=== PATIENT | female | born 1965 | race Caucasian/White ===

== ENCOUNTER 2025-07-06 13:35 | Outpatient (CLI) | payer OTHER, SELFPAY ==
--- OUTSIDE RECORDS SUMMARY | 2019-09-02 05:02 | XMS_ITS | Continuity of Care Document ---
Author Organization [facility] Address [address] [place] [address] Phone Care Team Providers Care Accounts Receivable Analyst Name Role Phone Calvin Villa MD Unavailable Unavailable Allergies, Adverse Reactions, Alerts Substance Reaction Status Criticality PENICILLIN Active No Information Medications Medication Instructions Dosage Effective Dates (start - stop) Status Comments Nexium 40 mg capsule,delayed release take 1 capsule by oral route every day 40 MG - Active Advance Directives Directive Yes / No Effective Date File Name No Information Encounters Encounter Description Practice Location Reason(s) For Visit Diagnoses Date Provider Providers Copied on Encounter [facility], [address], [place], [place], [id number] , [place] tel: [phone] [facility] No Information 9 Allen Simpson. [address] [place] [address], [id number] , . tel: [phone] [facility], [address], [place], [place], [id number] , tel: [phone] [facility] Second degree hemorrhoids 8 Allen Simpson. [address] [place] [address], [id number] , [place]. tel: [phone] Referring Provider: Calvin Villa, [address] [place] [address], [id number] . tel:[phone] [facility], [address], [place], [place], [id number] , tel: [phone] [facility] First degree hemorrhoidsHemorrh age of anus and rectum 8 Allen Simpson. [address] [facility] [facility], [address], [place], [place], [id number] , [place]. tel: [phone] Referring Provider: Edin Akhtar, [address] [employer] [facility], [place], [address]. tel:[phone] [facility], [address], [place], [place], [id number] , [place] tel: [phone] [facility] Rectal bleedingConstipati on, unspecified constipation typeHistory of colonic polyps 8 Isacc Mariano. [address], [address], [place], [address], [place]. tel: [phone] Referring Provider: Edin Akhtar, [address] [employer] [facility], [place], [address]. tel:[phone] Family History Family Member Type Diagnosis Age At Onset No Information Payers Payer name Insurance type Covered alliance party ID Naila jackman(s) [facility] [id number] Social History Type Description Quantity Date Captured Comments Alcohol Use Details Unknown Caffeine Use Details Unknown Tobacco Use Status Smoking Status No Information Sex Female Chief Complaint And Reason For Visit No Information Reason For Referral Reason For Referral No Information History Of Present Illness Encounter Date Complaint History Of Prese nt Illness No Information Functional Status Date Functional Assessmen t No Information Instructions Date Instruction Additional Infor mation No Information Assessments Type Assessment Date No Information Patient Care Teams Name Effective Dates (start - stop) Status Members No Information
--- NOTE | ~2025-07-06 | CT_ITS ---
EXAMINATION: CT knee LT wo con COMPARISON: None HISTORY: S83.282D - Other tear of lateral meniscus, current injury... TECHNIQUE: Axial images were obtained without IV contrast. Sagittal, coronal reconstruction images were obtained from the axial views. CT scan performed using dose optimization techniques including the following automated exposure control; adjustment of mA and/or kV; use of iterative reconstruction technique. Automatic exposure control was used to reduce radiation dose. Permanent radiation dose record is archived to PACS. FINDINGS: Small joint effusion. There are calcified loose bodies. No subcutaneous fluid collection or intramuscular hemorrhage identified (Is no thickening of the medial joint space, the hardware is intact with no lucency around the hardware. Moderate narrowing noted of the patellofemoral joint space with minimal narrowing of the lateral joint spaces, there is no fracture or dislocation. Scattered punctate bone islands are noted. IMPRESSION: Postsurgical and degenerative changes detailed above Reviewed, dictated and finalized at location A.
--- OUTSIDE RECORDS SUMMARY | 2025-07-06 15:08 | XMS_ITS | Clinical Summary ---
Author Organization [facility] Address [address] [place] [address] Care Team Providers Care Bird Tender Name Role Phone Unavailable Primary Care Provider Unavailabl e Source Comments [facility],non-owned Affiliates and Associated Physician Practices is amultiple site organization consisting of ambulatory clinics and hospital sitesin [place], [place], [place] and [place]. This disclosure is being madepursuant to the Care Everywhere program and may not contain all information available regarding this patient. Last updated 18.[facility] Social History Tobacco Use Types Packs/Day Years Used Date Smoking Tobacco: Never Assessed Comments Unknown Sex and Gender Information Value Date Recorded Sex Assigned at Not on file Legal Sex Female 11:59 AM CDT Gender Identity Not on file Sexual Orientation Not on file Plan of Treatment Health Maintenance Due Date Last Done Comments COLOGUARD (AGES 45-75) - COL ON CA SCREENING 1963 COLON MONITORING 1963 COLONOSCOPY - COLON CA SCREENING 1963 CT COLONOGRAPHY - COLON CA SCREENING 1963 Colorectal Cancer Screening 1963 FIT - COLON CA SCREENING 1963 FLEX SIG - COLON CA SCREENING 1963 LIPID TESTING 1963 MAMMOGRAM 1963 HIV SCREENING 1978 HEPATITIS C SCREENING 08/09/1981 DTAP/TDAP/TD VACCINES (1 - Tdap) 1982 PAP SMEAR 1984 PNEUMOCOCCAL VACCINE 50+ (1 of 1 - PCV) 2013 ZOSTER VACCINE (1 of 2) 2013 COVID-19 VACCINE ( - 2023-2 5 season) 2024 DEPRESSION SCREENING 10/28/2024 INFLUENZA VACCINE (#1) 2025 Respiratory Syncytial Virus (RSV) Vaccine Pt: or over 60 yrs (1 - 1-dose 75+ series) 2038 HEPATITIS B VACCINE Aged Out No longe r eligible based on patient's age to complete this topic HIB VACCINE Aged Out No longer eligi ble based on patient's age to complete this topic HPV VACCINE Aged Out No longer eligi ble based on patient's age to complete this topic MENINGOCOCCAL (Group B) VACC INE SHARED DECISION-MAKING Aged Out No longer eligibl e based on patient's age to complete this topic MENINGOCOCCAL GROUPS A/C/Y/W VACCINE Aged Out No longer eligible b ased on patient's age to complete this topic Insurance AETNA AETNA
--- OUTSIDE RECORDS SUMMARY | 2025-07-06 15:08 | XMS_ITS | Clinical Summary ---
Author Organization [facility] Building A Address [address] [place] [address] Care Team Providers Care Guest Room Attendant Name Role Phone Boo Deleon Primary Care Provider Dorian Rogers MD Unavailable [phone] Mikey Maynard MD Unavailable [phone] Allergies Active Allergy Reactions Criticality Noted Date Comments Regadenoson Nausea & Vomiting Low 09/08/2024 Medications BD Luer-João Syringe 3 mL 25 x 5/8 syringe USED FOR MONTHLY B12 SHOTS 100 each 3 2 Active aspirin 81 mg enteric coated tablet Take 1 tablet (81 mg total) by mouth daily Active ciclopirox (PENLAC) 8 % solution APPLY TO AFFECTED NAILS NIGHTLY. REMOVE ON THE 7TH NIGHT AND START AGAIN. 4 Active albuterol HFA (ProAir HFA) 90 mcg/actuation inhaler Inhale 2 puffs every 4 (four) hours as needed for wheezing or shortness of breath 3 each 3 4 07/14/[address] (NexIUM) 40 mg capsule TAKE 1 CAPSULE BY MOUTH EVERY DAY BEFORE BREAKFAST 90 capsule 3 4 Active fluticasone propionate (FLONASE) 50 mcg/actuation nasal spray Administer 2 sprays into each nostril daily 1 each 11 5 Active atorvastatin (LIPITOR) 10 mg tablet TAKE 1 TABLET BY MOUTH EVERY DAY 90 tablet 3 Active budesonide-form oteroL (SYMBICORT) 80-4.5 mcg/actuation inhaler Inhale 2 puffs 2 (two) times a day Rinse mouth with water after use. Do not swallow. 1 each Active cyanocobalamin (Vitamin B-12) 1,000 mcg/mL injection INJECT 2MLS ONCE A MONTH 6 mL Active methocarbamoL (ROBAXIN) 750 mg tablet Take 1 tablet (750 mg total) by mouth 3 (three) times a day 15 tablet Active Additional Information Patient not taking.Reported on 06/09/2025 ibuprofen (ADVIL,MOTRIN) 600 mg tablet Take 1 tablet (600 mg total) by mouth every 6 (six) hours as needed for pain for up to 60 doses 60 tablet Active Additional Information Patient not taking.Reported on 06/09/2025 famotidine (PEPCID) 40 mg tabletIndicatio ns:Laryngophary ngeal reflux (LPR) Take 1 tablet (40 mg total) by mouth nightly 90 tablet 3 5 05/22/20 26 Active Active Problems Problem Noted Date Diagnosed Date Subcutaneous emphysema due to trauma 05/27/2025 Assessment & Plan (05/27/2025 2:01 PM CDT): Personal interpretation of CT Neck: extensive subcutaneous emphysema of the right side of parotid area, neck and medistinum Consider repeat CT neck if continued foreign body sensation Right Decreased hearing 05/07/2025 Assessment & Plan (05/07/2025 6:21 AM CDT): Gross auditory testing shows decreased hearing in both sides, and markedly decreased on right side. Plan: Pt is seen by ENT, Dr. Enamorado, and requests to follow-up with her. Patient given strict precautions / symptoms to seek more urgent care including ear pain, ear discharge, or blood coming from out of the ear. Penetrating trauma 05/06/2025 Assessment & Plan (05/06/2025 2:47 PM CDT): 05/05 work injury drill strike piercing chin and chest. Transfer from osh, someone on ladder holding a drill, drill fell on pt and hit her chest, # R PTX #pneumomediastinum #pulmonary contusion #trace pleural effusion Discharge planning issues 05/06/2025 Assessment & Plan (05/06/2025 2:35 PM CDT): 05/05 admit awaiting inpatient bed. Acute pain 05/06/2025 Assessment & Plan (05/06/2025 2:36 PM CDT): Multimodal pain regimen APAP 1000 mg Ganesh Q 6hr Hydromorphone 0.5 mg prn Q2 hr Lidocaine patch Oxycodone 5 mg PRN Bowel regimen Senna and Miralax Pneumothorax 05/06/2025 Assessment & Plan (05/06/2025 2:46 PM CDT): Presented from [facility] with chest tube, poorly sutures and migrated with side port outside lung in SQ tissue, removed in ed -Serial CXR Q4 hour post pull 2 view - pulmonary hygiene - IS q1h - continuous pulse ox -telemetry 24-48 hours Oxygen supplementation maintain O2 sat greater than 92% HLD (hyperlipidemia) 05/06/2025 Assessment & Plan (05/06/2025 2:43 PM CDT): Chronic home med Atorvastatin 10 mg daily and ASA daily Puncture wound of neck 05/06/2025 Assessment & Plan (05/06/2025 2:44 PM CDT): #anterior neck puncture wound - local wound care PRN (4x4s, medipore) Puncture wound of chest 05/06/2025 Assessment & Plan (05/06/2025 2:49 PM CDT): Empiric antibiotic Ancef 05/05 Gentamicin 05/05 Updated Tetanus 05/05 Blunt trauma to chest, initial encounter 025 Laryngeal spasm 03/30/2025 Assessment & Plan (05/27/2025 1:52 PM CDT): Continue Nexium in the morning 30 minutes before any other food or fluid or medication Then start Pepcid 40 mg at bedtime Call if no improvement in the next 6-8 weeks, then if improvement noted, decrease Pepcid to 20 mg and then stop Assessment & Plan (03/30/2025 10:33 AM CDT): Continue Nexium Chronic sinusitis 03/29/2025 Assessment & Plan (03/29/2025 2:51 PM CDT): Continue Nexium 64 ounces of caffeine free and soda free fluid daily, more if sweating Nasal saline or Sinus Rinse followed Continue Flonase 2 sprays into each nostril while looking down over the sink, do not sniff in or blow nose after use for at least 30 minutes daily Call if no improvement in 6 weeks for trial of Astelin Pure hypercholesterolemia 10/25/2022 Assessment & Plan (03/10/2025 11:01 AM CDT): Counseled on heart healthy diet exercise Assessment & Plan (09/08/2024 12:31 PM CORROSION CONTROL ENGINEER): Counseled on heart healthy diet exercise Assessment & Plan (07/28/2024 3:17 PM CDT): Counseled on heart healthy diet exercise 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 Synovial cyst or some nerve compression Laryngopharyngeal reflux (LPR) 09/11/2021 Assessment & Plan (05/27/2025 1:52 PM CDT): Continue Nexium in the morning 30 minutes before any other food or fluid or medication Then start Pepcid 40 mg at bedtime Call if no improvement in the next 6-8 weeks, then if improvement noted, decrease Pepcid to 20 mg and then stop Assessment & Plan (05/06/2025 2:39 PM CDT): Chronic home med Esomeprazole 40 mg daily Assessment & Plan (09/11/2021 4:18 PM CORROSION CONTROL ENGINEER): Restart meds and try to change l pita to reduce meds Vitamin deficiency 08/29/2020 Assessment & Plan (05/06/2025 2:44 PM CDT): Chronic home med Vitam B-12 injection resume at discharge, initiate Vitamin D supplement Assessment & Plan (09/11/2021 4:09 PM CORROSION CONTROL ENGINEER): Vit d up and nl and stay on d at 39 and stay on Assessment & Plan (08/29/2020 3:53 PM CORROSION CONTROL ENGINEER): Taking vit d 1000 and stay on and check on retutrn Zinc deficiency 08/29/2020 Assessment & Plan (08/29/2020 3:53 PM CORROSION CONTROL ENGINEER): Levels mildly low and start zn daily supplement and check on return Abnormal LFTs 08/29/2020 Assessment & Plan (09/11/2021 4:09 PM CORROSION CONTROL ENGINEER): Alt back to nl Assessment & Plan (08/29/2020 3:59 PM CORROSION CONTROL ENGINEER): lft's dropped From 1 60 and down to 40 and nl now and check on reutr Multinodular goiter 12/03/2019 Assessment & Plan (08/29/2020 3:55 PM CORROSION CONTROL ENGINEER): tsh .81 nl and no jacob Assessment & Plan (12/03/2019 3:50 PM CORROSION CONTROL ENGINEER): Multi nodular goiter and discussed what and not interested to do repeat Or referral Carpal tunnel syndrome of right wrist 10/22/2019 Assessment & Plan (10/22/2019 2:41 PM CORROSION CONTROL ENGINEER): Classic when awaken meredith and corey trial cock up spinlt and report results on eeturn Hand arthritis 10/22/2019 Assessment & Plan (03/07/2020 4:20 PM CDT): Stable w/o arthralgia. Cnt. With daily modifications to prevent arthralgia flare up. Does not clinically appear to have any relation with acute dystrophy concerns Assessment & Plan (10/22/2019 2:44 PM CORROSION CONTROL ENGINEER): Look for inflamatory errosion check 0both hands Microscopic hematuria 08/28/2019 Assessment & Plan (08/29/2020 3:55 PM CORROSION CONTROL ENGINEER): Trace hem + and neg blood cells/. 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 And got colon and now wiling to do saida. On b12 and urged to stay oh And labs in a yr urged to get shingles hsot series and booster to covid Assessment & Plan (08/29/2020 4:08 PM CORROSION CONTROL ENGINEER): trancient abn lft resolved and no answer as to why the b12 nl with 2000 a month vit d Taking and ch4ck on reutnr sdropped th as to 81. zn nik start and bring in dose with return and check Assessment & Plan (12/03/2019 3:56 PM CORROSION CONTROL ENGINEER): P.e. on return ini early fall and labs the week defofre Assessment & Plan (08/28/2019 4:29 PM CDT): Well exam with copd and wants to quit. Screen, sprio with mild copd oobstructive changes trial augmentin for r ost lat neck nodule and base of hair line. Re eval in 6wks. Not into flu lsots. Assessment & Plan (07/25/2018 10:13 AM CDT): oirdered saida, had colon. Quit smoking and shingles shots. reymundonus discussed alont with flu and p shots. Assessment & Plan (04/18/2017 3:59 PM CDT): Healthy fmale with no c.o cont b12 with inj due and level 395 so monthly inj working for her. Fall flu shots keep wt up. Repeat labs and exam in a yr Chronic obstructive pulmonary disease 03/13/2014 Overview (01/31/2017): CHR AIRWAY OBSTRUCT NEC Assessment & Plan (05/06/2025 2:39 PM CDT): Chronic Home meds :Symbicort, Flonase, Albuterol Assessment & Plan (09/11/2021 4:11 PM CORROSION CONTROL ENGINEER): Prn albuterol and pred pulse if need Assessment & Plan (08/29/2020 3:56 PM CORROSION CONTROL ENGINEER): Copd and active smomker Assessment & Plan (12/03/2019 3:49 PM CORROSION CONTROL ENGINEER): Working to back off and not smoking at work that can do with less Assessment & Plan (08/28/2019 4:34 PM CDT): sprio with fvc 109 and fev1 78 withfev1% 58 Mild obstirctinve defect quiting smoiking will help mild copd Assessment & Plan (07/25/2018 10:13 AM CDT): Smoking dirdven and aqaware of need to qquit Assessment & Plan (04/18/2017 4:01 PM CDT): Daily coughand secretion with breathing test at 66 % Of the first sec compared to the end. This is low and suppport an obstruction and with yuou smoking. B12 deficiency 03/13/2014 Overview (01/31/2017): B12 deficiency Assessment & Plan (09/11/2021 4:11 PM CORROSION CONTROL ENGINEER): Stay no b12 and check onreutrn Assessment & Plan (08/29/2020 3:52 PM CORROSION CONTROL ENGINEER): b12 2000 a lm onth and runsin mid 500s and stay athere Assessment & Plan (03/07/2020 4:19 PM CDT): Last level WNL receiving monthly injections for Vit b12 hypovitaminemia. Cnt. Monthly injections with repeat vitamin B12 level for reassurance today as requested Assessment & Plan (12/03/2019 3:48 PM CORROSION CONTROL ENGINEER): Check with nov labs Assessment & Plan (07/25/2018 10:02 AM CDT): At 244 and taking monthly. Believes probably 6 wks from last. Will go to 2 shots a Month and can take monthly or q 2 wks Assessment & Plan (04/18/2017 3:59 PM CDT): Level just before inj due at 395 so monthly inj working and ocnt Tobacco dependence syndrome 03/13/2014 Overview (02/01/2017): TOBACCO USE DISORDER Assessment & Plan (03/10/2025 11:01 AM CDT): The patient was advised to quit smoking; the risks of continued tobacco use discussed. Assessment & Plan (12/07/2024 8:24 AM CORROSION CONTROL ENGINEER): The patient was advised to quit smoking; the risks of continued tobacco use discussed. Assessment & Plan (09/08/2024 12:31 PM CORROSION CONTROL ENGINEER): The patient was advised to quit smoking; the risks of continued tobacco use discussed. Assessment & Plan (07/28/2024 10:39 AM CDT): The patient was advised to quit smoking; the risks of continued tobacco use discussed. Assessment & Plan (01/27/2024 3:40 PM CDT): The patient was advised to quit smoking; the risks of continued tobacco use discussed. Assessment & Plan (09/24/2023 7:12 AM CORROSION CONTROL ENGINEER): The patient was advised to quit smoking; the risks of continued tobacco use discussed. Assessment & Plan (04/17/2023 12:31 PM CDT): She was advised to quit smoking; the risks of continued tobacco use discussed. Assessment & Plan (10/25/2022 12:44 PM CORROSION CONTROL ENGINEER): The patient was advised to quit smoking; the risks of continued tobacco use discussed. Assessment & Plan (09/11/2021 4:11 PM CORROSION CONTROL ENGINEER): talkabout tobacco and struggles to quit Assessment & Plan (05/30/2021 12:54 PM CDT): She was advised to quit smoking; the risks of continued tobacco use discussed. Assessment & Plan (03/22/2020 8:19 AM CDT): She was advised to quit smoking; the risks of continued tobacco use discussed. Assessment & Plan (08/28/2019 4:18 PM CDT): Long talk and agress to try chantix nobonarinder martinez Assessment & Plan (08/27/2017 10:47 AM CDT): Of course I recommended tobacco cessation. She is disinterested and declines any assistance in this regard. Assessment & Plan (04/18/2017 4:01 PM CDT): quitingf still the most important thing to do for health Resolved Problems Problem Noted Date Diagnosed Date Resolved Date Chest pain 10/09/2024 12/07/2024 Acute recurrent frontal sinusitis 12/30/2022 04/17/2023 Assessment & Plan (12/30/2022 9:00 PM CORROSION CONTROL ENGINEER): 1. Sudafed 2. Augmentin 3. Nasal saline rinses as needed for congestion. 4. Follow-up in 5-7 days - if symptoms worsen or persist Smokes 1 pack of cigarettes per day 05/22/2022 04/17/2023 Assessment & Plan (05/22/2022 4:25 PM CDT): Smoked since teenager was some more and now can't smoke at work so ends up smoking less. Offered low dose ct screen for cancer Discoloration of nailbeds 03/07/2020 Assessment & Plan (03/07/2020 4:22 PM CDT): Bilateral thumb nail dystrophies which could likely be D/T prior trauma VS a deficiency anemia, chronic hypoxia/ tobacco use, vitamin deficiencies or onychomycosis. Checking CBC, vitamin-A, vitamin-D, vitamin B6, vitamin B 9, vitamin B12, CBC, zinc for further evaluation. Recent CMP indicated normal liver functions and glucose testing. Essentially asymptomatic aside from visual concerns-w/o any desire to look further into autoimmune conditions such as psoriasis (as this was offered to Pt, but she declined). Further follow-up pending results of labs. Neck nodule 10/22/2019 12/03/2019 Assessment & Plan (10/22/2019 2:40 PM CORROSION CONTROL ENGINEER): r lat neck and get ct to eval and re eval in 4-6 wks pending results Vertigo 05/25/2019 01/27/2024 Assessment & Plan (05/25/2019 10:18 AM CDT): Recurrent spellsin past with 2-3 prior pt has helped in past and asks for pt. Uses salt heavily And asked to liimit Salt Some. Meclizine not helpful in past. BMI 23.0-23.9, adult 07/25/2018 024 Assessment & Plan (05/22/2022 4:30 PM CDT): Wt stable Assessment & Plan (09/11/2021 4:10 PM CORROSION CONTROL ENGINEER): Work to keep sta stable Assessment & Plan (08/29/2020 4:10 PM CORROSION CONTROL ENGINEER): Keep wt stable Assessment & Plan (08/28/2019 4:18 PM CDT): Wt still great. Assessment & Plan (07/25/2018 10:14 AM CDT): Work to keep wt here as not wanting ot lose Acute URI 08/27/2017 07/25/2018 Assessment & Plan (02/03/2018 1:40 PM CDT): Recommended Augmentin 1 tablet twice daily for 10 day course with use of probiotics [id number] for any GI upset, iroq-mql-[id number] Flonase, use of a humidifier or vaporization use at night certainly close follow-up outpatient regarding condition. I did recommend Mucinex [id number] for any of the chest congestion and to assist with productivity and cough. Close follow-up outpatient if there is worsening or little improvement symptoms Assessment & Plan (08/27/2017 10:47 AM CDT): Humidification, fluids, and rest were recommended. Patient was instructed to take antibiotic as directed. Patient was encouraged to take antibiotic with food. I have also recommended daily probiotic, yogurt or capsule, while on the antibiotic. Encounters Date Type Department Care Team Description 07/06/2025 [facility]phone [facility] [address] [facility] 3rd Floor [address] [place] [address] Lu Austin letter for work stating she can not go back to work 06/16/2025 9:30 AM CDT Office Visit [facility] [address] [facility] [address] [place] [address] Puncture wound of chest, left, subsequent encounter (Primary Dx) 06/15/2025 Telephone [facility] [address] [place] [address] [address] [place] [address] Tereza Garcia MA work status 06/09/2025 10:15 AM CDT Office Visit [facility] [address] [place] [address] [address] [place] [address] Traumatic pneumothorax, subsequent encounter (Primary Dx) 05/27/2025 1:45 PM CDT Office Visit [facility] - [facility] [address] [place] [phone] Nilam Enamorado DO Laryngopharyngeal reflux (LPR) (Primary Dx); Laryngeal spasm; Traumatic subcutaneous emphysema, initial encounter 05/19/2025 10:45 AM CDT Office Visit [facility] [address] [place] [address] [address] [place] [address] Traumatic pneumothorax, subsequent encounter (Primary Dx) 05/19/2025 10:00 AM CDT - 05/19/2025 11:59 PM CDT Hospital Encounter [facility] [address] [place] [address] Traumatic pneumothorax, subsequent encounter Discharge Disposition: Discharge to home or self care 05/11/2025 Telephone [facility] Medicine Surgery [address] [place] [address] 12th [place] [address] [place] [address] Gail Camacho 05/11/2025 Telephone [facility] [place] [address] [place] [phone] Boo Deleon PA Referral Request 05/05/2025 8:47 PM CDT - 05/07/2025 3:36 PM CDT Hospital Encounter [facility] [address] [facility] [place] [address] An Virk MD Zanaboni, MD Scott Albarran, MD Wilton Alvarez, Deon Cardozo MD Blunt trauma to chest, initial encounter (Primary Dx); Traumatic pneumothorax, initial encounter; Chest tube in place Discharge Disposition: Discharge to home or self care 05/05/2025 8:05 PM CDT - 05/05/2025 11:59 PM CDT Hospital Encounter [facility], Room R Discharge Disposition: Discharge to home or self care 05/05/2025 4:06 PM CDT - 05/05/2025 8:23 PM CDT Emergency [facility] Emergency Department [address] [place] [address] Conner Gordillo MD Puncture wound (Primary Dx) Discharge Disposition: Discharge to a short term hospital for IP 04/29/2025 Results Follow-Up [facility] [place] [address] [place] [id number] Boo Deleon PA Dexa Axial Skeleton Bone Density 1 Or 2 Site 04/28/2025 2:49 PM CDT - 04/28/2025 11:59 PM CDT Hospital Encounter [facility] [address] [place] [address] Age related osteoporosis, unspecified pathological fracture presence Discharge Disposition: Discharge to home or self care from Last 3 Months Immunizations Immunization Administration Dates Next Due Influenza, Unspecified 12/07/2024(Deferr ed: Patient Refused),09/08/2024(Deferred: Patient Refused),07/28/2024(Deferred: Patient Refused),07/28/2024(Deferred: Patient Refused),09/24/2023(Deferred: Patient Refused),07/28/2023(Deferred: Patient Refused),05/30/2021(Deferred: Patient Refused),01/16/2021(Deferred: Patient Refused),12/28/2020(Deferred: Patient Refused),08/29/2020(Deferred: Patient Refused),08/02/2019(Deferred: Patient Refused),07/28/2019(Deferred: Patient Refused),06/05/2019(Deferred: Not available from electronic gluing machine operator),08/02/2018(Deferred: Patient Refused),07/28/2018(Deferred: Patient Refused),07/28/2018(Deferred: Patient Refused) Moderna SARS-CoV-2 Monovalen t Vaccination (12+ YRS) 02/17/2021,01/20/2021 Tdap 05/05/2025(Deferred: Other - received at OSH),05/05/2025 Surgical History Surgery Date Site/Laterality Comments APPENDECTOMY 10/28/1978 - 10/27/1979 Appendectomy THROAT SURGERY 10/28/2005 - 10/27/2006 vocal cord nodules -from gerd: vocal chord stripping-gerd related KNEE SURGERY 10/28/2013 - 10/27/2014 meniscal tear: L knee surgery HYSTERECTOMY OOPHORECTOMY 2000 or Left TOTAL KNEE ARTHROPLASTY b/l Medical History Medical History Date Comments Smoking Sleep apnea Motion sickness Family history of patent foramen ovale small per ANT 2019 Lung disease COPD (chronic obstructive pulmonary disease) Cough GERD (gastroesophageal reflux disease) Chronic pain disorder Family History Medical History Relation Name Comments Blood Clot Father Heart failure Father Hypertension Father Hypertension; Stroke Father Relation Name Status Comments Father Social History Tobacco Use Types Packs/Day Years Used Date Smoking Tobacco: Former Cigarettes 1.5 45.7 1 - 05/05/2025 Smokeless Tobacco: Never Tobacco Cessation:Counseling Given: Not Answered Alcohol Use Standard Drinks/Week Comments Not Currently 0 (1 standard drink = 0.6 oz pur e alcohol) [facility] Utilities Answer Date Recorded In the past 12 months has [facility] rumr: turn off the lights, gas, oil, or water Appature threatened to shut off services in your home? No 05/06/2025 Humiliation, Afraid, Rape, and Kick questionnair e Answer Date Recorded Within the last year, have y ou been afraid of your partner or ex-partner? No 05/06/2025 Within the last year, have y ou been humiliated or emotionally abused in other ways by your partner or ex-partner? No Within the last year, have y ou been kicked, hit, slapped, or otherwise physically hurt by your partner or ex-partner? No 05/06/2025 Within the last year, have y ou been raped or forced to have any kind of sexual activity by your partner or ex-partner? No 05/06/2025 Social Connection and Isolation Panel Answer Date Recorded In a typical week, how many times do you talk on the phone with family, friends, or neighbors? Once a week 05/06/2025 How often do you get togethe r with friends or relatives? Once a week 05/06/2025 How often do you attend chur ch or restorationist services? Never 05/06/2025 Do you belong to any clubs o r organizations such as gnosticism groups, unions, fraternal or athletic groups, or school groups? No 05/06/2025 How often do you attend meet ings of the clubs or organizations you belong to? More than 4 times per year 05/06/2025 Are you , , di vorced, , never , or living with a partner? Never 05/06/2025 Overall Financial Resource Strain (CARDIA) Answe r Date Recorded How hard is it for you to pa y for the very basics like food, housing, medical care, and heating? Not hard at all 05/06/2025 PHQ-2 Answer Date Recorded PHQ-2 Total Score (If total score is 3 or more points, staff should administer the PHQ-9) 0 03/10/2025 [facility] - Occupational Stress Questionnaire Answer Date Recorded Do you feel stress - tense, restless, nervous, or anxious, or unable to sleep at night because your mind is troubled all the time - these days? To some extent 05/06/2025 Exercise Vital Sign Answer Date Recorde d On average, how many days pe r week do you engage in moderate to strenuous exercise (like a brisk walk)? 4 days 05/06/2025 On average, how many minutes do you engage in exercise at this level? 30 min 05/06/2025 PRAPARE - Transportation Answer Date Re corded In the past 12 months, has l ack of transportation kept you from medical appointments or from getting medications? No 04/27 In the past 12 months, has l ack of transportation kept you from meetings, work, or from getting things needed for daily living? No 05/06/2025 Housing Stability Vital Sign Answer Damien e Recorded In the last 12 months, was t here a time when you were not able to pay the mortgage or rent on time? No 05/06/2025 Number of Times Moved in the Last Year Not on fi le 05/06/2025 At any time in the past 12 m [facility], were you homeless or living in a [place] facility (including now)? No 05/06/2025 AUDIT-C Answer Date Recorded Q1: How often do you have a drink containing alcohol? Never 06/16/2025 Q2: How many drinks containi ng alcohol do you have on a typical day when you are drinking? Patient does not drink Q3: How often do you have si x or more drinks on one occasion? Never 06/16/2025 Hunger Vital Sign Answer Date Recorded Within the past 12 months, y ou worried that your food would run out before you got the money to buy more. Never true 06/16/20 Within the past 12 months, t he food you bought just didn't last and you didn't have money to get more. Never true 06/16/2025 Personal Safety Answer Date Recorded Have you ever been in or are you currently in a harmful physical or emotional relationship or is someone making you feel afraid or unsafe? Denies 05/06/2025 Comments No Sex and Gender Information Value Date Recorded Sex Assigned at Not on file Legal Sex Female 7:06 PM [employer] Gender Identity Not on file Sexual Orientation Not on file Obstetrics History Para Term AB IAB SAB Ectopic Multiple Livin g Live Births 2 1 1 Date Outcome GA Total Labor Labor/2nd/3rd Weight Sex Type Anes PTL Isabel A1 A5 Name Clin Term Last Filed Vital Signs Vital Sign Reading Time Taken Comments Blood Pressure 121/88 06/16/2025 8:48 AM CDT Pulse 87 06/16/2025 8:48 AM CDT Temperature 37.2 C (99 F) 06/16/2025 8:48 AM CDT Respiratory Rate 18 06/16/2025 8:48 AM CDT Oxygen Saturation 97% 06/16/2025 8:48 AM CDT Inhaled Oxygen Concentration - - Weight 62.7 kg (138 lb 3.2 oz) 06/16/2025 8:48 A M CDT Height 167.6 cm (5' 6) 06/16/2025 8:48 AM CDT Body Mass Index 22.31 06/16/2025 8:48 AM CDT Plan of Treatment Health Maintenance Due Date Last Done Comments Pneumococcal vaccine <65 (1 of 2 - PCV) 1982 Zoster Vaccine (1 of 2) 2013 Covid-19 Vaccine (4 - 2024-2 6 season) 2025 09/29/2021, 02/17/2021, 01/20/2021 Influenza Vaccine (#1) 2025 Lung Cancer Screening 10/21/2025 10/20/2024 , 10/19/2023, 06/11/2022 Depression Screening 03/10/2026 03/10/2025, 12/07/2024, 09/08/2024, Additional history exists Regular Well Visit/Exam 18-64 03/10/2026, 01/27/2024, 10/25/2022, Additional history exists Breast Cancer Screening-Mammogram 03/23/2026 03/23/2025, 03/23/2025, 03/23/2025, Additional history exists Osteoporosis Screening-Bone Density Scan 04/28/2027 04/28/2025, 02/01/2006, 02/01/2006 Colon Cancer Screening-Colonoscopy 04/07/2029 04/07/2024, 01/09/2018, 01/09/2018, Additional history exists DTaP/Tdap/Td Vaccine (2 - Td or Tdap) 05/05/2035 05/05/2025 Hepatitis C Screening Completed 08/25/2020 , 07/21/2018, 07/11/2018 Cervical Cancer Screening Discontinued 01/07/2024 Colon Cancer Screening-CT Colonography Discontinued 04/07/2024, 01/09/2018, 01/09/2018, Additional history exists Colon Cancer Screening-DNA Stool Discontinued 04/07/2024, 01/09/2018, 01/09/2018, Additional history exists Colon Cancer Screening-FIT Discontinued 04/07, 01/09/2018, 01/09/2018, Additional history exists Colon Cancer Screening-Sigmoidoscopy Discontinued 04/07/2024, 01/09/2018, 01/09/2018, Additional history exists Hepatitis B Screening Completed 02/24/2025 Medical Devices Implanted Type Area Fire Lookout Device Identifier Shelf Expiration Date Model / Serial / Lot Cordis Mynxgrip 5fr Balloon Catheter Integrate Sealant Lock Latex Free [id number] - [id number] Implanted:Qty: 1 on 10/14/2024 by Nba Win MD at [facility] 08/04/2026 [id number] / / [id number] Procedures Procedure Name Priority Date/Time Associated Diagnosis Comments XR CHEST PA LATERAL 2 VIEWS Schedule Routine, Read Routine (OP Routine) 05/19/2025 10:24 AM CDT Traumatic pneumothorax, subsequent encounter XR CHEST PA LATERAL 2 VIEWS ED Urgent/IP Urgent 05/07/2025 9:30 AM CDT XR CHEST PA LATERAL 2 VIEWS ED 05/06/2025 2:51 PM CDT XR CHEST 1 VIEW ED Urgent/IP Urgent 05/06/2025 8:35 AM CDT ECG 12-LEAD STAT 05/05/2025 11:21 PM CDT B CHECK SAMPLE STAT 05/05/2025 9:51 PM CDT THROMBOELASTOMETRY PANEL - INTRINSIC Routine 05/05/2025 9:00 PM CDT THROMBOELASTOMETRY PANEL - HEPARIN Routine 05/05/2025 9:00 PM CDT THROMBOELASTOMETRY PANEL - EXTRINSIC Routine 05/05/2025 9:00 PM CDT THROMBOELASTOMETRY PANEL - FIBRINOGEN Routine 05/05/2025 9:00 PM CDT EGFR STAT 05/05/2025 9:00 PM CDT DIFFERENTIAL AUTO Routine 05/05/2025 9:0 0 PM CDT COMPREHENSIVE METABOLIC PANEL STAT 05/05/2025 9:00 PM CDT THROMBOELASTOMETRY PANEL Routine 025 9:00 PM CDT PROTIME-INR Routine 05/05/2025 9:00 PM CDT APTT Routine 05/05/2025 9:00 PM CDT ETHANOL Routine 05/05/2025 9:00 PM CDT CBC WITH AUTO DIFFERENTIAL Routine 05/05/2025 9:00 PM CDT TYPE AND SCREEN Timed 05/05/2025 9:00 PM CDT XR CHEST 1 VIEW ED 05/05/2025 8:[address] CHEST W CONTRAST ED 05/05/2025 6 :[address] SOFT TISSUE NECK W CONTRAST ED 05/05/2025 6:10 PM CDT ED MODERATE SEDATION Routine 05/05/2025 5:55 PM CDT ED CHEST TUBE INSERTION Routine 05/05/20 25 5:55 PM CDT XR CHEST 1 VIEW ED 05/05/2025 5:44 PM CDT XR CHEST 1 VIEW ED 05/05/2025 4:23 PM CDT EGFR STAT 05/05/2025 4:13 PM CDT DIFFERENTIAL AUTO STAT 05/05/2025 4:1 3 PM CDT BASIC METABOLIC PANEL STAT 05/05/2025 4:13 PM CDT CBC WITH AUTO DIFFERENTIAL STAT 05/05/2025 4:13 PM CDT ECG 12-LEAD Routine 05/05/2025 4:12 PM CDT [facility] CRITICAL CARE ILL/INJURED PATIENT INIT 30-74 MIN Routine 05/05/2025 4:07 PM CDT DEXA AXIAL SKELETON BONE DENSITY 1 OR MORE SITES Schedule Routine, Read Routine (OP Routine) 04/28/2025 3:04 PM CDT Age related osteoporosis, unspecified pathological fracture presence SCREENING MAMMOGRAM BILATERAL W THOMAS Schedule Routine, Read Routine (OP Routine) 03/23/2025 CT LUNG CANCER SCREENING Schedule Routine, Read Routine (OP Routine) 10/20/2024 7:05 AM [employer] Personal history of nicotine dependence COLONOSCOPY Routine 04/07/2024 HM PAP SMEAR WITH HPV Routine 01/07/2024 HEPATITIS PANEL, ACUTE Routine 4:40 PM CDT Abnormal LFTs from Last 3 Months or Most Recently Relevant to Health Maintenance Results * XR Chest PA Lateral 2 Views (05/19/2025 10:24 AM CDT) Anatomical Region Laterality Modality Body, Chest N/A Computed Radiogr aphy 05/19/2025 10:3 0 AM CDT Impressions 05/19/2025 10:30 AM CDT Comparison is made to the prior examination 05/07/2025. Again seen is opacity in the medial right upper hemithorax which may represent evolving pulmonary laceration when compared to prior cross-sectional imaging. No new area of pneumonic consolidation, effusion, or pneumothorax. Stable heart size. Electronically signed by: Herminio Mendoza M.D. Narrative 05/19/2025 10:30 AM CDT EXAMINATION: 2 view chest radiograph Procedure Note Herminio Mendoza MD - 05/19/2025 EXAMINATION: 2 view chest radiograph IMPRESSION: Comparison is made to the prior examination 05/07/2025. Again seen is opacity in the medial right upper hemithorax which may represent evolving pulmonary laceration when compared to prior cross-sectional imaging. No new area of pneumonic consolidation, effusion, or pneumothorax. Stable heart size. Electronically signed by: Herminio Mendoza M.D. Lito Thornton DO IMG XR PROCEDURES Fin al Result * XR Chest Pa Lateral 2 Views (05/07/2025 9:30 AM CDT) Anatomical Region Laterality Modality Body, Chest N/A Computed Radiogr aphy 05/07/2025 1:06 PM CDT Impressions 05/07/2025 1:06 PM CDT Comparison 05/06/2025 2:48 PM. Small right pneumothorax again seen. Subcutaneous gas again noted. No left pneumothorax seen. Medial right upper hemithorax opacity again seen, likely represents evolving pulmonary laceration/contusion, unchanged. Mild right base atelectasis and tiny right basilar pleural effusion again seen. Subcutaneous gas again noted. Heart size remains within normal limits. Pneumomediastinum again seen. Electronically signed by: Ventura King M.D. Narrative 05/07/2025 1:06 PM CDT EXAMINATION: 2 view chest radiograph Procedure Note Ventura King MD - 05/07/2025 EXAMINATION: 2 view chest radiograph IMPRESSION: Comparison 05/06/2025 2:48 PM. Small right pneumothorax again seen. Subcutaneous gas again noted. No left pneumothorax seen. Medial right upper hemithorax opacity again seen, likely represents evolving pulmonary laceration/contusion, unchanged. Mild right base atelectasis and tiny right basilar pleural effusion again seen. Subcutaneous gas again noted. Heart size remains within normal limits. Pneumomediastinum again seen. Electronically signed by: Ventura King M.D. Juju Drake [employer]SEMBLER IMG XR PROCEDURES Fi nal Result * XR Chest PA Lateral 2 Views (05/06/2025 2:51 PM CDT) Anatomical Region Laterality Modality Body, Chest N/A Computed Radiogr aphy 05/06/2025 2:57 PM CDT Impressions 05/06/2025 2:57 PM CDT Comparison is made to prior from 05/06/2025 at 8:23 AM. The right-sided chest tube is been removed. There is a small residual right basilar pneumothorax. This is not substantially changed from prior. Unchanged pneumomediastinum and soft tissue gas in the supraclavicular fossa. There is a laceration in the medial right apex. The left lung is clear. Heart size is normal. Trace right pleural effusion. Electronically signed by: Kashif Nava M.D. Narrative 05/06/2025 2:57 PM CDT EXAMINATION: 2 view chest radiograph Procedure Note Kashif Nava MD - 05/06/2025 EXAMINATION: 2 view chest radiograph IMPRESSION: Comparison is made to prior from 05/06/2025 at 8:23 AM. The right-sided chest tube is been removed. There is a small residual right basilar pneumothorax. This is not substantially changed from prior. Unchanged pneumomediastinum and soft tissue gas in the supraclavicular fossa. There is a laceration in the medial right apex. The left lung is clear. Heart size is normal. Trace right pleural effusion. Electronically signed by: Kashif Nava M.D. Hernesto Simpson Jr., MD IMG XR PROCEDURES Harriet l Result * XR Chest 1 View (05/06/2025 8:35 AM CDT) Anatomical Region Laterality Modality Body, Chest N/A Computed Radiogr aphy 05/06/2025 9:48 AM CDT Impressions 05/06/2025 10:07 AM CDT Comparison 05/05/2025. The chest tube appears to be retracted with side port in the subcutaneous tissue in the tip possibly extrathoracic. Bilateral subcutaneous emphysema. Interval increase of pneumomediastinum. Small pneumothorax seen at the right basilar and apical lung. Dictated by: Shaggy Silva M.D. The radiology attending physician has personally reviewed this study, and had reviewed and/or edited this written report and agrees with it. Electronically signed by: Kashif Nava M.D. Narrative 05/06/2025 10:07 AM CDT EXAMINATION: 1 view chest radiograph Procedure Note Kashif Nava MD - 05/06/2025 EXAMINATION: 1 view chest radiograph IMPRESSION: Comparison 05/05/2025. The chest tube appears to be retracted with side port in the subcutaneous tissue in the tip possibly extrathoracic. Bilateral subcutaneous emphysema. Interval increase of pneumomediastinum. Small pneumothorax seen at the right basilar and apical lung. Dictated by: Shaggy Silva M.D. The radiology attending physician has personally reviewed this study, and had reviewed and/or edited this written report and agrees with it. Electronically signed by: Kashif Nava M.D. Hernesto Simpson Jr., MD IMG XR PROCEDURES Harriet l Result * ECG 12-LEAD (05/05/2025 11:21 PM CDT) Narrative [facility] - 05/05/2025 11:21 PM CDT Dave Rodriguez MD 05/05/2025 11:22 PM ECG 12 lead Date/Time: 05/05/2025 11:21 PM Performed by: Dave Rodriguez MD Authorized by: Remigio Barr MD Rate: ECG rate: 58 ECG rate assessment: bradycardic Rhythm: Rhythm: sinus bradycardia Ectopy: Ectopy: none QRS: QRS axis: Normal QRS intervals: Normal Conduction: Conduction: normal ST segments: ST segments: Normal T waves: T waves: non-specific Previous ECG: Previous ECG: Unavailable Interpretation: Interpretation: No acute injury pattern Recommended Follow-up: Recommended follow up: further workup in the ED Remigio Barr MD ECG ORDERABLES Final Resu lt [facility] * Check Sample (05/05/2025 9:51 PM CDT) ABO Rh O Positive [facility] HCLL OTHER 05/05/2025 9:51 PM CDT 05/05/2025 9:59 PM CDT Conner Gordillo MD LAB BLOOD ORDERABLES Final Result [facility] [place] [address] [facility] * Thromboelastometry Panel - Heparin (05/05/2025 9:00 PM CDT) HEPTEM-CT 176 141 - 215 sec HEPTEM-A5 36 33 - 51 mm [facility] HEPTEM-A10 47 44 - 61 mm [facility] HEPTEM-A20 54 52 - 67 mm [facility] HEPTEM-MCF 56 54 - 69 mm [facility] Blood 05/05/2025 9:00 PM CDT 05/05/2025 9:08 PM CDT An Virk MD LAB BLOOD ORDERABLES E dited Result - Final Performing Organization Address City/[facility] Co de Phone Number [facility] Department [place] [address] * Thromboelastometry Panel - Intrinsic (05/05/2025 9:00 PM CDT) INTEM-CT 176 139 - 205 sec INTEM-A5 39 36 - 54 mm C[facility]ER [facility] INTEM-A10 49 46 - 63 mm C[facility] INTEM-A20 55 53 - 68 mm [facility] INTEM-MCF 56 55 - 70 mm [facility] INTEM-LI60 98 93 - 100 % [facility]-ML 3 0 - 7 % [facility] Comment: Interpretive Data Rotational Thromboelastometry (KEMAR) Sigma is a type of viscoelastic testing (VET). KEMAR can rapidly assess hemostasis and guide blood product transfusion in cardiac surgery, liver transplantation, and other bleeding situations. It is not a replacement for conventional coagulation testing (such as PT INR, aPTT and fibrinogen). While anticoagulation medications can impact KEMAR results, KEMAR should not be used to monitor or manage anticoagulation. Standard VET is insensitive to the pharmacological effects of aspirin, thienopyridines, P2Y12 inhibitors and flow-dependent platelet function defects. Literature References 1. Ángel Orellana. Sensitivity of Viscoelastic Tests to Platelet Function. J Clin Med. 2019 10 9(6) 334. 2. Elise O, Rae CM, Jeremías N, Duy EE, Duy HB, En HC, Byron WEEKS, Vanesa Graves MD, James SS, Luz G, Desmond HD, Richi ML, Anoop AV, Anoop SG, Diego L, Dontrell SIMMONS, Izabel M, Elena P, Dodie D, Santos MM. Viscoelastic Hemostatic Assays A Primer on Legacy and New Generation Devices. J Clin Med. 2021Dec 04 11(2) 403. 3. KEMAR Operating Manual. Ashley Kitchen MA. Rebeka 13-15. D- [id number] [facility]. Blood 05/05/2025 9:00 PM CDT 05/05/2025 9:08 PM CDT us An Virk MD LAB BLOOD ORDERABLES E dited Result - Final Performing Organization Address [facility] Co de Phone Number [facility] Department [place] [address] * Thromboelastometry Panel - Fibrinogen (05/05/2025 9:00 PM CDT) FIBTEM-A5 10 5 - 16 mm FIBTEM-A10 10 6 - 17 mm [facility] FIBTEM-A20 11 6 - 18 mm [facility] FIBTEM-MCF 11 9 - 19 mm [facility] Blood 05/05/2025 9:00 PM CDT 05/05/2025 9:08 PM CDT us An Virk MD LAB BLOOD ORDERABLES E dited Result - Final Performing Organization Address City/[facility]/ZIP Co de Phone Number [facility] Department [place] [address] * Thromboelastometry Panel - Extrinsic (05/05/2025 9:00 PM CDT) Pathologist [facility] EXTEM-CT 53 51 - 73 sec EXTEM-A5 39 33 - 52 mm [facility] EXTEM-A10 50 45 - 62 mm [facility] EXTEM-A20 57 54 - 69 mm [facility] EXTEM-MCF 59 57 - 72 mm [facility] EXTEM-LI60 98 94 - 100 % [facility] EXTEM-ML 3 0 - 6 % [facility] Blood 05/05/2025 9:00 PM CDT 05/05/2025 9:08 PM CDT us An Virk MD LAB BLOOD ORDERABLES E dited Result - Final [facility] [place] [address] * eGFR (05/05/2025 9:00 PM CDT) [facility] eGFR 79 >=60 mL/min/1. 73 m2 Comment: Interpretive Data Reference Interval Normal >/= 90 mL/min/1.73m2 Mildly decreased* 60 - 89 mL/min/1.73m2 Mildly to moderately decreased 45 - 59 mL/min/1.73m2 Moderately to severely decreased 30 - 44 mL/min/1.73m2 Severely decreased 15 - 29 mL/min/1.73m2 Kidney Failure < 15 mL/min/1.73m2 *Relative to young adult level Estimated glomerular filtration rate is determined by the 2020 CKD-EPI equation recommended by the National Kidney Foundation (A Unifying Approach to GFR Estimation: Recommendations of the NKF-ASK Task Force on Reassessing the Inclusion of Race in Diagnosing Kidney Disease, JASN 2020). The CKD-EPI equation should not be used for patients with unstable renal function and has not been validated in children and those over 70. Current interpretive data was last reviewed 2021. Blood 05/05/2025 9:00 PM CDT 05/05/2025 9:17 PM CDT us An Virk MD LAB BLOOD ORDERABLES F inal Result [facility] [place] [address] * (ABNORMAL) Differential, auto (05/05/2025 9:00 PM CDT) Neutrophil abs 11.05(H) 1.50 - 6.50 K/cumm Imm gran abs 0.07 0.00 - 0.10 [facility] Lymphocyte abs 3.14 0.80 - 3.30 K/cumm [facility] Monocyte abs 1.05(H) 0.20 - 0.80 [facility] Eosinophil abs 0.09 0.00 - 0.50 K/cumm [facility] Basophil abs 0.08 0.00 - 0.10 K/cumm [facility] Neutrophil pct 71.3 % [facility] Comment: Interpretive Data Percent cell count reference ranges are not reported, since discordance with absolute values may lead to misinterpretation of CBC data. Current Interpretive Data was last revised on 2018. Imm gran pct 0.5 % [facility] Comment: Interpretive Data Percent cell count reference ranges are not reported, since discordance with absolute values may lead to misinterpretation of CBC data. Current Interpretive Data was last revised on 2018. Lymphocyte pct 20.3 % [facility] Comment: Interpretive Data Percent cell count reference ranges are not reported, since discordance with absolute values may lead to misinterpretation of CBC data. Current Interpretive Data was last revised on 2018. Monocyte pct 6.8 % [facility] Comment: Interpretive Data Percent cell count reference ranges are not reported, since discordance with absolute values may lead to misinterpretation of CBC data. Current Interpretive Data was last revised on 2018. Eosinophil pct 0.6 % [facility] Comment: Interpretive Data Percent cell count reference ranges are not reported, since discordance with absolute values may lead to misinterpretation of CBC data. Current Interpretive Data was last revised on 2018. Basophil pct 0.5 % [facility] Comment: Interpretive Data Percent cell count reference ranges are not reported, since discordance with absolute values may lead to misinterpretation of CBC data. Current Interpretive Data was last revised on 2018. Blood 05/05/2025 9:00 PM CDT 05/05/2025 9:17 PM CDT An Virk MD LAB BLOOD ORDERABLES F inal Result [facility] Department [place] [address] * (ABNORMAL) CBC with auto differential (05/05/2025 9:00 PM CDT) WBC 15.48(H) 3.80 - 9.90 K/cumm Hgb 13.0 11.9 - 15.5 g/dL [facility] Hct 40.0 35.6 - 45.5 % [facility] Plt 228 150 - 400 K/cumm [facility] MPV 9.9 9.1 - 12.3 fL [facility] RBC 4.13 3.90 - 5.20 M/cumm [facility] MCV 96.9(H) 81.3 - 96.4 fL [facility] MCH 31.5 27.1 - 33.3 pg [facility] MCHC 32.5 32.3 - 35.7 g/dL [facility] RDW CV 13.8 11.1 - 14.9 % [facility] RDW SD 49.3(H) 35.7 - 48.1 fL [facility] NRBC abs 0.00 0.00 - 0.01 K/cumm [facility] Blood 05/05/2025 9:00 PM CDT 05/05/2025 9:17 PM CDT An Virk MD LAB BLOOD ORDERABLES F inal Result Performing Organization Address [facility] de Phone Number [facility] [place] [address] * aPTT (05/05/2025 9:00 PM CDT) aPTT 33 28 - 38 sec Comment: Interpretive Data Heparin therapeutic range: 66.0 - 100.0 seconds. Range based on correlation with therapeutic heparin activity range of 0.3 - 0.7 Units/mL. Current interpretive data was last revised on 2023. Blood 05/05/2025 9:00 PM CDT 05/05/2025 9:25 PM CDT An Virk MD LAB BLOOD ORDERABLES F inal Result Performing Organization Address [facility] [place] [address] * Protime-INR (05/05/2025 9:00 PM CDT) PT 10.7 9.7 - 13.0 sec INR 0.99 0.90 - 1.20 [facility] Comment: Interpretive data Oral anticoagulant therapeutic ranges: Venous thromboembolism prophylaxis or treatment: 2.0-3.0 CARDIOLOGY Standard range: 2.0-3.0 High-intensity range: 2.5-3.5 Refer to indication-specific guidelines for appropriate target ranges for prosthetic heart valve replacement. Current interpretive data was last revised on 2019. Blood 05/05/2025 9:00 PM CDT 05/05/2025 9:25 PM CDT An Virk MD LAB BLOOD ORDERABLES F inal Result Performing Organization Address [facility] Co de Phone Number [facility] [place] [address] * Type and screen (05/05/2025 9:00 PM CDT) Pathologist [facility] ABO Rh O Positive Robbin, indirect Negative [facility] Blood 05/05/2025 9:00 PM CDT 05/05/2025 9:14 PM CDT Narrative [facility] - 05/05/2025 10:11 PM CDT Has the patient had Daratumumab or Isatuximab in the past 6 months?->Unknown An Virk MD LAB BLOOD BANK TEST OR DERABLES Final Result Performing Organization Address [facility] Co de Phone Number [facility] [place] [address] * Ethanol (05/05/2025 9:00 PM CDT) [facility] Ethanol <10 <=10 mg/dL Comment: Interpretive Data Legal limit of intoxication > or = 80 mg/dL Levels > or = 400 mg/dL are potentially TOXIC. Current interpretive data was last revised on 2018. Blood 05/05/2025 9:00 PM CDT 05/05/2025 9:17 PM CDT An Virk MD LAB BLOOD ORDERABLES F inal Result Performing Organization Address [facility] Co de Phone Number [facility] [place] [address] * Comprehensive metabolic panel (05/05/2025 9:00 PM CDT) [facility] Sodium 141 135 - 145 mmol/L Potassium, pl 4.1 3.3 - 4.9 mmol/L [facility] Chloride 107 97 - 110 mmol/L [facility] CO2 26 22 - 32 mmol/L [facility] Anion gap 8 2 - 15 mmol/L [facility] BUN 12 6 - 25 mg/dL [facility] Creatinine 0.84 0.60 - 1.10 mg/dL [facility] Glucose 112 70 - 199 mg/dL [facility] Comment: Interpretive Data Fasting glucose >/= 126 mg/dl is diagnostic for diabetes. Fasting is defined as no caloric intake for at least 8 hours. Fasting glucose between 100 mg/dl to 125 mg/dl is diagnostic of prediabetes. In a patient with classic symptoms of hyperglycemia or hyperglycemic crisis, a random glucose >/= 200 mg/dl is diagnostic for diabetes. In the absence of unequivocal hyperglycemia, results should be confirmed by repeat testing. The classification and Diagnosis of Diabetes Diabetes Care 2021; 46: S19-S40. Current interpretive data was last revised 2022. Calcium 9.3 8.5 - 10.3 mg/dL [facility] Bilirubin, total 0.2 0.1 - 1.2 mg/dL [facility] Protein, pl 7.0 6.5 - 8.5 g/dL [facility] Albumin 4.1 3.5 - 5.0 g/dL [facility] Alk phos 74 40 - 130 Units/L [facility] ALT 17 7 - 45 Units/L [facility] AST 25 10 - 45 Units/L [facility] Blood 05/05/2025 9:00 PM CDT 05/05/2025 9:17 PM CDT us An Virk MD LAB BLOOD ORDERABLES F inal Result [facility] Department [place] [address] * Chest xray, 1 view, portable (05/05/2025 8:58 PM CDT) Anatomical Region Laterality Modality Body, Chest N/A Computed Radiogr aphy 05/05/2025 9:32 PM CDT Impressions 05/06/2025 8:08 AM CDT FINDINGS/IMPRESSION: Interval retraction of right thoracostomy tube with tip and side-port and thoracic cavity. Unchanged sub-cutaneous emphysema and pneumomediastinum. Unchanged small right pneumothorax. Opacity over the right mid lung and lower lung likely reflects contusion better evaluated on same day CT scan. No pleural effusion. Cardiomediastinal silhouette is unchanged. Dictated by: Leon Resendiz MD The radiology attending physician has personally reviewed this study, and had reviewed and/or edited this written report and agrees with it. Electronically signed by: Kashif Nava M.D. Narrative 05/06/2025 8:08 AM CDT EXAMINATION: XR CHEST 1 VIEW HISTORY: Trauma activation COMPARISON: X-ray from 05/05/2025 Procedure Note Kashif Nava MD - 05/06/2025 EXAMINATION: XR CHEST 1 VIEW HISTORY: Trauma activation COMPARISON: X-ray from 05/05/2025 IMPRESSION: FINDINGS/IMPRESSION: Interval retraction of right thoracostomy tube with tip and side-port and thoracic cavity. Unchanged sub-cutaneous emphysema and pneumomediastinum. Unchanged small right pneumothorax. Opacity over the right mid lung and lower lung likely reflects contusion better evaluated on same day CT scan. No pleural effusion. Cardiomediastinal silhouette is unchanged. Dictated by: Leon Resendiz MD The radiology attending physician has personally reviewed this study, and had reviewed and/or edited this written report and agrees with it. Electronically signed by: Kashif Nava M.D. us An Virk MD IMG XR PROCEDURES Harriet l Result * CT Chest W Contrast (05/05/2025 6:10 PM CDT) Anatomical Region Laterality Modality Body N/A Computed Tomogra phy 05/05/2025 6:13 PM CDT Narrative 05/05/2025 6:24 PM CDT EXAM DESCRIPTION: CT CHEST W CONTRAST; CT SOFT TISSUE NECK W CONTRAST REASON FOR STUDY: Chest trauma, penetrating, Puncture wound at the manubrium. Is there any vascular damage, tracheal damage, or pneumothora Drill fell and punctured patient's throat ; Brachial plexopathy, traumatic, Puncture wound at the manubrium. Is there any vascular damage, tracheal damage, or pneumothorax Drill fell and punctured patient's throat TECHNIQUE: CT scan of the chest performed with intravenous contrast using helical scanning technique with dynamic intravenous contrast injection. Reconstructed coronal and sagittal MPR images reviewed. All images stored on PACS. Automated exposure control was used as a dose optimization technique for this examination. CONTRAST TYPE/DOSE: 75mL of IOVERSOL 350 MG IODINE/ML INTRAVENOUS SYRINGE injected via intravenous COMPARISON: CT chest 10/20/2024 FINDINGS: LUNGS/PLEURA: Small right-sided pneumothorax. A right lateral approach chest tube terminates at the level of the medial right lung apex. No left pneumothorax. Right upper and lower lobe opacities, suggestive of atelectasis. Trace right pleural effusion. MEDIASTINUM/ALEJANDRA: Extensive pneumomediastinum. HEART: Heart size is normal with no pericardial effusion. VASCULATURE: No thoracic aortic aneurysm. No retrosternal hematoma. AXILLA: No adenopathy. CHEST WALL: Soft tissue emphysema along the right anterolateral chest wall. UPPER ABDOMEN: No significant abnormality. MUSCULOSKELETAL: No significant abnormality. NECK: Extensive soft tissue emphysema extending into the neck. IMPRESSION: 1. Small right pneumothorax with a chest tube in place. 2. Extensive pneumomediastinum extending along the right chest wall and neck. 3. Trace right pleural effusion. 4. No traumatic vascular findings. THIS IS AN ELECTRONICALLY VERIFIED FINAL REPORT 05/05/2025 6:24 PM - Electronically signed by Deep Ferrell M.D. KR: KR Report ID: [id number] Reading Location: [id number] Procedure Note Deep Ferrell MD - 05/05/2025 EXAM DESCRIPTION: CT CHEST W CONTRAST; CT SOFT TISSUE NECK W CONTRAST REASON FOR STUDY: Chest trauma, penetrating, Puncture wound at themanubrium. Is there any vascular damage, tracheal damage, or pneumothora Drill fell and punctured patient's throat ; Brachial plexopathy,traumatic, Puncture wound at the manubrium. Is there any vascular damage, tracheal damage, or pneumothorax Drill fell and punctured patient's throat TECHNIQUE: CT scan of the chest performed with intravenous contrast using helical scanning technique with dynamic intravenous contrast injection. Reconstructed coronal and sagittal MPR images reviewed. All images storedon PACS. Automated exposure control was used as a dose optimizationtechnique for this examination. CONTRAST TYPE/DOSE: 75mL of IOVERSOL 350 MG IODINE/ML INTRAVENOUS SYRINGE injected via intravenous COMPARISON: CT chest 10/20/2024 FINDINGS: LUNGS/PLEURA: Small right-sided pneumothorax. A right lateral approachchest tube terminates at the level of the medial right lung apex. No left pneumothorax. Right upper and lower lobe opacities, suggestive of atelectasis. Trace right pleural effusion. MEDIASTINUM/ALEJANDRA: Extensive pneumomediastinum. HEART: Heart size is normal with no pericardial effusion. VASCULATURE: No thoracic aortic aneurysm. No retrosternal hematoma. AXILLA: No adenopathy. CHEST WALL: Soft tissue emphysema along the right anterolateral chestwall. UPPER ABDOMEN: No significant abnormality. MUSCULOSKELETAL: No significant abnormality. NECK: Extensive soft tissue emphysema extending into the neck. IMPRESSION: 1. Small right pneumothorax with a chest tube in place. 2. Extensive pneumomediastinum extending along the right chest wall and neck. 3. Trace right pleural effusion. 4. No traumatic vascular findings. THIS IS AN ELECTRONICALLY VERIFIED FINAL REPORT 05/05/2025 6:24 PM - Electronically signed by Deep Ferrell M.D. KR: KR Report ID: [id number] Reading Location: [place] [id number] Conner Gordillo MD IMG CT PROCEDURES Final Re sult * CT Neck Soft Tissue W Contrast (05/05/2025 6:10 PM CDT) Anatomical Region Laterality Modality Head and Neck N/A Computed Tomogra phy 05/05/2025 6:13 PM CDT Narrative 05/05/2025 6:24 PM CDT EXAM DESCRIPTION: CT CHEST W CONTRAST; CT SOFT TISSUE NECK W CONTRAST REASON FOR STUDY: Chest trauma, penetrating, Puncture wound at the manubrium. Is there any vascular damage, tracheal damage, or pneumothora Drill fell and punctured patient's throat ; Brachial plexopathy, traumatic, Puncture wound at the manubrium. Is there any vascular damage, tracheal damage, or pneumothorax Drill fell and punctured patient's throat TECHNIQUE: CT scan of the chest performed with intravenous contrast using helical scanning technique with dynamic intravenous contrast injection. Reconstructed coronal and sagittal MPR images reviewed. All images stored on PACS. Automated exposure control was used as a dose optimization technique for this examination. CONTRAST TYPE/DOSE: 75mL of IOVERSOL 350 MG IODINE/ML INTRAVENOUS SYRINGE injected via intravenous COMPARISON: CT chest 10/20/2024 FINDINGS: LUNGS/PLEURA: Small right-sided pneumothorax. A right lateral approach chest tube terminates at the level of the medial right lung apex. No left pneumothorax. Right upper and lower lobe opacities, suggestive of atelectasis. Trace right pleural effusion. MEDIASTINUM/ALEJANDRA: Extensive pneumomediastinum. HEART: Heart size is normal with no pericardial effusion. VASCULATURE: No thoracic aortic aneurysm. No retrosternal hematoma. AXILLA: No adenopathy. CHEST WALL: Soft tissue emphysema along the right anterolateral chest wall. UPPER ABDOMEN: No significant abnormality. MUSCULOSKELETAL: No significant abnormality. NECK: Extensive soft tissue emphysema extending into the neck. IMPRESSION: 1. Small right pneumothorax with a chest tube in place. 2. Extensive pneumomediastinum extending along the right chest wall and neck. 3. Trace right pleural effusion. 4. No traumatic vascular findings. THIS IS AN ELECTRONICALLY VERIFIED FINAL REPORT 05/05/2025 6:24 PM - Electronically signed by Deep Ferrell M.D. KR: CARTER Report ID: [id number] Reading Location: [place] [id number] Procedure Note Deep Ferrell MD - 05/05/2025 EXAM DESCRIPTION: CT CHEST W CONTRAST; CT SOFT TISSUE NECK W CONTRAST REASON FOR STUDY: Chest trauma, penetrating, Puncture wound at themanubrium. Is there any vascular damage, tracheal damage, or pneumothora Drill fell and punctured patient's throat ; Brachial plexopathy,traumatic, Puncture wound at the manubrium. Is there any vascular damage, tracheal damage, or pneumothorax Drill fell and punctured patient's throat TECHNIQUE: CT scan of the chest performed with intravenous contrast using helical scanning technique with dynamic intravenous contrast injection. Reconstructed coronal and sagittal MPR images reviewed. All images storedon PACS. Automated exposure control was used as a dose optimizationtechnique for this examination. CONTRAST TYPE/DOSE: 75mL of IOVERSOL 350 MG IODINE/ML INTRAVENOUS SYRINGE injected via intravenous COMPARISON: CT chest 10/20/2024 FINDINGS: LUNGS/PLEURA: Small right-sided pneumothorax. A right lateral approachchest tube terminates at the level of the medial right lung apex. No left pneumothorax. Right upper and lower lobe opacities, suggestive of atelectasis. Trace right pleural effusion. MEDIASTINUM/ALEJANDRA: Extensive pneumomediastinum. HEART: Heart size is normal with no pericardial effusion. VASCULATURE: No thoracic aortic aneurysm. No retrosternal hematoma. AXILLA: No adenopathy. CHEST WALL: Soft tissue emphysema along the right anterolateral chestwall. UPPER ABDOMEN: No significant abnormality. MUSCULOSKELETAL: No significant abnormality. NECK: Extensive soft tissue emphysema extending into the neck. IMPRESSION: 1. Small right pneumothorax with a chest tube in place. 2. Extensive pneumomediastinum extending along the right chest wall and neck. 3. Trace right pleural effusion. 4. No traumatic vascular findings. THIS IS AN ELECTRONICALLY VERIFIED FINAL REPORT 05/05/2025 6:24 PM - Electronically signed by Deep Ferrell M.D. KR: KR Report ID: [id number] Reading Location: [id number] us Conner Gordillo MD IMG CT PROCEDURES Final Re sult * Procedural Sedation (05/05/2025 5:55 PM CDT) Narrative Conner Gordillo MD - 05/05/2025 5:55 PM CDT Conner Gordillo MD 05/05/2025 8:25 PM Procedural Sedation Date/Time: 05/05/2025 5:55 PM Performed by: Conner Gordillo MD Authorized by: Conner Gordillo MD [place] Protocol: Informed consent: Risks, benefits, alternatives discussed Indications: Sedation purpose: Chest tube insertion/removal Pre-sedation assessment: Intended level of sedation: Deep NPO status caution: urgency dictates proceeding with non-ideal NPO status Mallampati score: I - soft palate, uvula, fauces, pillars visible Planned medication(s): Midazolam and Propofol Immediate pre-procedure details: Reassessment: Patient reassessed immediately prior to procedure Reviewed: Vital signs, relevant labs/tests and current medications Verified: bag valve mask available, emergency equipment available, intubation equipment available, IV patency confirmed, oxygen available, reversal medications available and suction available Procedure details (see MAR for exact dosages): Preoxygenation: Nonrebreather mask Sedation: Midazolam and propofol 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, continuous pulse oximetry, continuous capnometry, frequent LOC assessments, frequent vital sign checks and blood pressure monitoring Intra-procedure events: none Post-procedure details: Patient tolerance: Tolerated well, no immediate complications Conner Gordillo MD IN CLINIC/BEDSIDE ORDERABL ES Final Result * ED CHEST TUBE INSERTION (05/05/2025 5:55 PM CDT) Narrative Conner Gordillo MD - 05/05/2025 5:55 PM CDT Conner Gordillo MD 05/05/2025 8:25 PM Chest Tube Insertion Date/Time: 05/05/2025 5:55 PM Performed by: Conner Gordillo MD Authorized by: Conner Gordillo MD Informed consent: Risks, benefits, alternatives discussed Consent form signed, dated, timed; matches correct patient, intended procedure and site: Yes Imaging: Pertinent imaging reviewed, correctly oriented and match to patient identifiers Risks discussed: Bleeding, damage to surrounding structures, incomplete drainage, infection, nerve damage and pain Alternatives discussed: No treatment Skin preparation: Betadine Preparation: Patient was prepped and draped in the usual sterile fashion Sedation used: yes Anesthesia method: None Indications: Pneumothorax Placement location: R lateral Scalpel size: 15 Tube size (Fr): 24 Dissection instrument: Alycia clamp Ultrasound guidance: no Tension pneumothorax: yes Tube connected to: Suction Suture material: 2-0 silk Dressinx4 sterile gauze and petrolatum-impregnated gauze Post-insertion x-ray findings: tube in good position Patient tolerance of procedure: Tolerated well, no immediate complications us Conner Gordillo MD IN CLINIC/BEDSIDE ORDERABL ES Final Result * XR Chest 1 Vw Portable (05/05/2025 5:44 PM CDT) Anatomical Region Laterality Modality Body, Chest N/A Computed Radiogr aphy 05/05/2025 5:55 PM CDT Narrative 05/05/2025 5:59 PM CDT EXAM DESCRIPTION: XR CHEST 1 VIEW REASON FOR STUDY: Other (type) Chest tube placement TECHNIQUE: 1 radiographic view(s) of the chest. COMPARISON: 05/05/2025. FINDINGS: There has been interval placement of a right chest tube with tip projecting over the medial right upper hemithorax. Substantial decrease in the right pneumothorax which now appears small. There is right basilar opacity, likely atelectasis.. No pleural effusion. Minimal left base atelectasis.. Heart size and cardiomediastinal contours are normal. Resolution of leftward midline shift of the mediastinum. No acute displaced fracture or aggressive bone lesion seen grossly. There is gas in the stomach. No gross acute finding in the upper abdomen. IMPRESSION: Interval placement of a right chest tube with substantial decrease in the right pneumothorax, which now appears small. Mild right basilar opacity, likely atelectasis. Short interval radiographic follow-up to resolution is recommended THIS IS AN ELECTRONICALLY VERIFIED FINAL REPORT 05/05/2025 5:59 PM - Electronically signed by Ran Encinas M.D. MZ: HARDIK Report ID: [id number] Reading Location: [id number] Procedure Note Ran Encinas MD - 05/05/2025 EXAM DESCRIPTION: XR CHEST 1 VIEW REASON FOR STUDY: Other (type) Chest tube placement TECHNIQUE: 1 radiographic view(s) of the chest. COMPARISON: 05/05/2025. FINDINGS: There has been interval placement of a right chest tube with tipprojecting over the medial right upper hemithorax. Substantial decrease in the right pneumothorax which now appears small. There is right basilar opacity,likely atelectasis.. No pleural effusion. Minimal left base atelectasis..Heart size and cardiomediastinal contours are normal. Resolution of leftward midline shift of the mediastinum. No acute displaced fracture oraggressive bone lesion seen grossly. There is gas in the stomach. No gross acute finding in the upper abdomen. IMPRESSION: Interval placement of a right chest tube with substantial decrease in the right pneumothorax, which now appears small. Mild right basilar opacity, likely atelectasis. Short intervalradiographic follow-up to resolution is recommended THIS IS AN ELECTRONICALLY VERIFIED FINAL REPORT 05/05/2025 5:59 PM - Electronically signed by Ran Encinas M.D. MZ: MZ Report ID: [id number] Reading Location: [id number] us Conner Gordillo MD IMG XR PROCEDURES Final Re sult * XR Chest 1 View (05/05/2025 4:23 PM CDT) Anatomical Region Laterality Modality Body, Chest N/A Computed Radiogr aphy 05/05/2025 4:44 PM CDT Narrative 05/05/2025 5:17 PM CDT EXAM DESCRIPTION: XR CHEST 1 VIEW REASON FOR STUDY: pain, Puncture wound at the manubrium. Is there a pneumothorax Pt to ED BIBEMS. Pt was at a construction site at the bottom of a ladder when a drill fell and hit her in the throat. Pt states's the drill length is about 6 inches long. Pt has puncture wound noted to neck. Pt AOx4. TECHNIQUE: Single radiographic view(s) of the chest. COMPARISON: Chest radiograph 12/27/2021 FINDINGS: LUNGS: Right pneumothorax with mild leftward mediastinal shift. Left lung is clear. HEART/MEDIASTINUM: Cardiac silhouette normal in size. Mediastinal and hilar contours appear normal. LINES/TUBES: None. BONES: No acute osseous abnormality. IMPRESSION: Right pneumothorax with mild leftward mediastinal shift. Critical Result: The critical information above was relayed directly by me by telephone to Nurse (Lesly) on 05/05/2025 at 4:48 pm Central Time. THIS IS AN ELECTRONICALLY VERIFIED FINAL REPORT 05/05/2025 5:17 PM - Electronically signed by Tuyet Kim M.D. FT: FT Report ID: [id number] Reading Location: [id number] Procedure Note Tuyet Lane MD - 05/05/2025 EXAM DESCRIPTION: XR CHEST 1 VIEW REASON FOR STUDY: pain, Puncture wound at the manubrium. Is there a pneumothorax Pt to ED BIBEMS. Pt was at a construction site at the bottom of a ladderwhen a drill fell and hit her in the throat. Pt states's the drill length isabout 6 inches long. Pt has puncture wound noted to neck. Pt AOx4. TECHNIQUE: Single radiographic view(s) of the chest. COMPARISON: Chest radiograph 12/27/2021 FINDINGS: LUNGS: Right pneumothorax with mild leftward mediastinal shift. Leftlung is clear. HEART/MEDIASTINUM: Cardiac silhouette normal in size. Mediastinal andhilar contours appear normal. LINES/TUBES: None. BONES: No acute osseous abnormality. IMPRESSION: Right pneumothorax with mild leftward mediastinal shift. Critical Result: The critical information above was relayed directly by me by telephoneto Nurse (Lesly) on 05/05/2025 at 4:48 pm Central Time. THIS IS AN ELECTRONICALLY VERIFIED FINAL REPORT 05/05/2025 5:17 PM - Electronically signed by Tuyet Kim M.D. FT: FT Report ID: [id number] Reading Location: [id number] Conner Gordillo MD IMG XR PROCEDURES Final Re sult * eGFR (05/05/2025 4:13 PM CDT) eGFR 68 >=60 mL/min/1. 73 m2 Comment: Interpretive Data Reference Interval Normal >/= 90 mL/min/1.73m2 Mildly decreased* 60 - 89 mL/min/1.73m2 Mildly to moderately decreased 45 - 59 mL/min/1.73m2 Moderately to severely decreased 30 - 44 mL/min/1.73m2 Severely decreased 15 - 29 mL/min/1.73m2 Kidney Failure < 15 mL/min/1.73m2 *Relative to young adult level Estimated glomerular filtration rate is determined by the 2020 CKD-EPI equation recommended by the National Kid[employer] (A Unifying Approach to GFR Estimation: Recommendations of the NKF-ASK Task Force on Reassessing the Inclusion of Race in Diagnosing Kidney Disease, JASN 2020). The CKD-EPI equation should not be used for patients with unstable renal function and has not been validated in children and those over 70. Current interpretive data was last reviewed 2021. Blood 05/05/2025 4:13 PM CDT 05/05/2025 4:19 PM CDT us Conner Gordillo MD LAB BLOOD ORDERABLES Final Result [facility] Department [place] [address] * (ABNORMAL) Differential, auto (05/05/2025 4:13 PM CDT) Neutrophil abs 3.19 1.50 - 6.50 K/cumm Imm gran abs 0.01 0.00 - 0.10 K/cumm [facility] ([place]) Lymphocyte abs 3.34(H) 0.80 - 3.30 K/cumm [facility] ([place]) Monocyte abs 0.71 0.20 - 0.80 K/cumm [facility] ([place]) Eosinophil abs 0.13 0.00 - 0.50 K/cumm [facility] ([place]) Basophil abs 0.08 0.00 - 0.10 K/cumm [facility] ([place]) Neutrophil pct 42.8 % [facility] ([place] Comment: Interpretive Data Percent cell count reference ranges are not reported, since discordance with absolute values may lead to misinterpretation of CBC data. Current Interpretive Data was last revised on 2018. Imm gran pct 0.1 % [facility] ([place]) Comment: Interpretive Data Percent cell count reference ranges are not reported, since discordance with absolute values may lead to misinterpretation of CBC data. Current Interpretive Data was last revised on 2018. Lymphocyte pct 44.8 % [facility] ([place] Comment: Interpretive Data Percent cell count reference ranges are not reported, since discordance with absolute values may lead to misinterpretation of CBC data. Current Interpretive Data was last revised on 2018. Monocyte pct 9.5 % [facility] ([place]) Comment: Interpretive Data Percent cell count reference ranges are not reported, since discordance with absolute values may lead to misinterpretation of CBC data. Current Interpretive Data was last revised on 2018. Eosinophil pct 1.7 % [facility] ([place] Comment: Interpretive Data Percent cell count reference ranges are not reported, since discordance with absolute values may lead to misinterpretation of CBC data. Current Interpretive Data was last revised on 2018. Basophil pct 1.1 % [facility] ([place]) Comment: Interpretive Data Percent cell count reference ranges are not reported, since discordance with absolute values may lead to misinterpretation of CBC data. Current Interpretive Data was last revised on 2018. Blood 05/05/2025 4:13 PM CDT 05/05/2025 4:19 PM CDT us Conner Gordillo MD LAB BLOOD ORDERABLES Final Result [facility] Department [place] [address] * (ABNORMAL) CBC with auto differential (05/05/2025 4:13 PM CDT) WBC 7.46 3.80 - 9.90 K/cumm Hgb 13.1 11.9 - 15.5 g/dL [facility] Hct 39.4 35.6 - 45.5 % [facility] Plt 240 150 - 400 K/cumm [facility] ([place]) MPV 9.5 9.1 - 12.3 fL [facility]) RBC 4.06 3.90 - 5.20 M/cumm [facility] ([place] MCV 97.0(H) 81.3 - 96.4 fL [facility] ([place] MCH 32.3 27.1 - 33.3 pg [facility]) MCHC 33.2 32.3 - 35.7 g/dL [facility] RDW CV 13.7 11.1 - 14.9 % [facility] RDW SD 49.3(H) 35.7 - 48.1 fL [facility] ([place] NRBC abs 0.00 0.00 - 0.01 K/cumm [facility] Blood 05/05/2025 4:13 PM CDT 05/05/2025 4:19 PM CDT us Conner Gordillo MD LAB BLOOD ORDERABLES Final Result [facility] Department [place] [address] * (ABNORMAL) Basic metabolic panel (05/05/2025 4:13 PM CDT) Sodium 138 135 - 145 mmol/L Potassium, pl 3.7 3.3 - 4.9 mmol/L [facility] Chloride 101 97 - 110 mmol/L [facility] CO2 21(L) 22 - 32 mmol/L [facility] Anion gap 16(H) 2 - 15 mmol/L [facility] BUN 13 6 - 25 mg/dL [facility] Creatinine 0.95 0.60 - 1.10 mg/dL [facility] Glucose 125 70 - 199 mg/dL [facility] Comment: Interpretive Data Fasting glucose >/= 126 mg/dl is diagnostic for diabetes. Fasting is defined as no caloric intake for at least 8 hours. Fasting glucose between 100 mg/dl to 125 mg/dl is diagnostic of prediabetes. In a patient with classic symptoms of hyperglycemia or hyperglycemic crisis, a random glucose >/= 200 mg/dl is diagnostic for diabetes. In the absence of unequivocal hyperglycemia, results should be confirmed by repeat testing. The classification and Diagnosis of Diabetes Diabetes Care 2021; 46: S19-S40. Current interpretive data was last revised 2022. Calcium 9.6 8.5 - 10.3 mg/dL [facility] Blood 05/05/2025 4:13 PM CDT 05/05/2025 4:19 PM CDT us Conner Gordillo MD LAB BLOOD ORDERABLES Final Result Performing Organization Address [facility] Co de Phone Number [facility] Department [place] [address] * ECG 12 lead (05/05/2025 4:12 PM CDT) 05/05/2025 4:12 PM CDT Narrative [facility] - 05/06/2025 12:29 PM CDT Vent Rate: 106 bpm RR Interval: 566 msec WV Interval: 125 msec QRS Duration: 110 msec QT Interval: 358 msec QTC Interval: 420 msec P-R-T [place]: 96 - 93 - 68 degrees IMPRESSION: Baseline artifact, probable SINUS TACHYCARDIA WITH FREQUENT VENTRICULAR PREMATURE COMPLEXES BORDERLINE RIGHT AXIS DEVIATION [QRS AXIS > 90] Nonspecific lateral ST segment depressions ABNORMAL RHYTHM ECG Electronically Signed By: Braulio Alvarez MD us Conner Gordillo MD ECG ORDERABLES Final Resu lt Performing Organization Address [facility] Co de Phone Number [facility] * [place] [facility]ARE ILL/INJURED PATIENT INIT 30-74 MIN (05/05/2025 4:07 PM CDT) Narrative Conner Gordillo MD - 05/05/2025 4:07 PM CDT Conner Gordillo MD 05/05/2025 8:25 PM Critical Care Performed by: Conner Gordillo MD Authorized by: Conner Gordillo MD Critical care provider statement: As reflected in the history, physical exam, orders, notes, and/or MDM, I was personally present while the patient was critically ill and provided critical care services for 75 minutes, excluding time involved in separately billable procedures. Critical care was necessary to treat or prevent imminent or life-threatening deterioration of the following condition(s): hemo/pneumothorax Critical care was time spent by me providing the following: continuous telemetry, continuous pulse oximetry, serial bedside patient exams and resuscitation with fluids non-invasive positive pressure ventilator management emergent delivery and management of and active titration of continuous sedation I provided emergent necessary critical care medicine services to this patient. I ordered and reviewed test results and/or imaging studies. I spent time discussing the management of this critically ill patient with consultants and the medical staff. I spent time discussing the management and therapeutic options for this critically ill patient with the patient themselves or with the appropriate designated surrogate decision-maker. I spent time documenting in the medical record. I admitted this patient to an Intensive Care unit (ICU) and discussed management with the admitting team. us Conner Gordillo MD IN CLINIC/BEDSIDE ORDERABL ES Final Result * Dexa Axial Skeleton Bone Density 1 Or 2 Site (04/28/2025 3:04 PM CDT) Anatomical Region Laterality Modality Body N/A Other 04/28/2025 4:25 PM CDT Narrative 04/28/2025 4:26 PM CDT EXAM DESCRIPTION: DEXA AXIAL SKELETON BONE DENSITY 1 OR MORE SITES REASON FOR STUDY: 59 y/o year old F with given history of: Postmenopausal status. History of smoking. Patient takes vitamin-D Fire Lookout/Model: Fashinating Discovery SL (S/N [id number]) Facility LSC value of 0.022 for the AP spine, 0.027 for the femur, and 0.023 for the forearm. CLINICAL INFORMATION: Current height: 60 inches Maximum height: 67 inches Weight: 145 pounds Risk factors: Smoking COMPARISON: None available FINDINGS: AP LUMBAR SPINE L1-L4: Total BMD is 0.847 g/cm2 T-score is -1.8 LEFT HIP: Total BMD is 0.756 g/cm2 T-score is -1.5 Femoral neck BMD is 0.590 g/cm2 T-score is -2.3 FRAX: 10 year risk for a major osteoporotic fracture is 11 %, 10 year risk for a hip fracture is 2.9 % Per National Osteoporosis Foundation guidelines, this patient does not meet the criteria for pharmacological treatment of patients with FRAX 10 year major osteoporotic fracture risk scores of = or greater than 20% or a 10 year probability of a hip fracture = or greater than 3%, to reduce fracture risk. Additional factors such as frequent falls are not represented in FRAX and warrant individual clinical judgment. IMPRESSION: 1. Low bone mass REFERENCE: Bone mineral density: T-Score: Normal (T-score above or = -1.0) Low bone mass (T-score between -1.0 and -2.5) replaces the previously used term osteopenia Osteoporosis (T-score = or below -2.5) Z-Score: Within the expected range for age (Z-score above -2.0) Below the expected range for age (Z-score is -2.0 or below) Please see below follow up recommendations. Medical evaluation for secondary causes of low bone mineral density may be appropriate. FRAX is a World Health Organization validated fracture risk assessment tool that calculates a person's 10 year probability of a major osteoporosis related fracture and hip fracture. According to the National Osteoporosis Foundation guidelines, postmenopausal women and men age 50 or older with low bone mass and a 10 year probability of a major osteoporosis related fracture = or greater than 20% or a 10 year probability of a hip fracture = or greater than 3% should be considered for pharmacological treatment for the prevention of osteoporosis. For further information, including treatment recommendations, please refer to the 2019 ISCD Official Positions (http://www.iscd.org) and the NOF's Clinician's Guide to Prevention and Treatment of Osteoporosis (http://www.nof.org/professionals/clinical-guidelines) THIS IS AN ELECTRONICALLY VERIFIED FINAL REPORT 04/28/2025 4:26 PM - Electronically signed by Myrtle Sebastian M.D. TW: TW Report ID: [id number] Reading Location: [id number] Procedure Note Myrtle Sebastian MD - 04/28/2025 EXAM DESCRIPTION: DEXA AXIAL SKELETON BONE DENSITY 1 OR MORE SITES REASON FOR STUDY: 59 y/o year old F with given history of:Postmenopausal status. History of smoking. Patient takes vitamin-D Fire Lookout/Model: Fashinating Discovery SL (S/N 09198) Facility LSC value of 0.022 for the AP spine, 0.027 for the femur, and0.023 for the forearm. CLINICAL INFORMATION: Current height: 60 inches Maximum height: 67 inches Weight: 145 pounds Risk factors: Smoking COMPARISON: None available FINDINGS: AP LUMBAR SPINE L1-L4: Total BMD is 0.847 g/cm2 T-score is -1.8 LEFT HIP: Total BMD is 0.756 g/cm2 T-score is -1.5 Femoral neck BMD is 0.590 g/cm2 T-score is -2.3 FRAX: 10 year risk for a major osteoporotic fracture is 11 %, 10 year risk for ahip fracture is 2.9 % Per National Osteoporosis Foundation guidelines, this patient does notmeet the criteria for pharmacological treatment of patients with FRAX 10 yearmajor osteoporotic fracture risk scores of = or greater than 20% or a 10 year probability of a hip fracture = or greater than 3%, to reduce fracturerisk. Additional factors such as frequent falls are not represented in FRAX and warrant individual clinical judgment. IMPRESSION: 1. Low bone mass REFERENCE: Bone mineral density: T-Score: Normal (T-score above or = -1.0) Low bone mass (T-score between -1.0 and -2.5) replaces thepreviously used term osteopenia Osteoporosis (T-score = or below -2.5) Z-Score: Within the expected range for age (Z-score above -2.0) Below the expected range for age (Z-score is -2.0 or below) Please see below follow up recommendations. Medical evaluation forsecondary causes of low bone mineral density may be appropriate. FRAX is a World Health Organization validated fracture risk assessmenttool that calculates a person's 10 year probability of a major osteoporosisrelated fracture and hip fracture. According to the National OsteoporosisFoundation guidelines, postmenopausal women and men age 50 or older with low bonemass and a 10 year probability of a major osteoporosis related fracture = or greater than 20% or a 10 year probability of a hip fracture = or greaterthan 3% should be considered for pharmacological treatment for the preventionof osteoporosis. For further information, including treatment recommendations, please referto the 2019 ISCD Official Positions (http://www.iscd.org) and the NOF's Clinician's Guide to Prevention and Treatment of Osteoporosis (http://www.nof.org/professionals/clinical-guidelines) THIS IS AN ELECTRONICALLY VERIFIED FINAL REPORT 04/28/2025 4:26 PM - Electronically signed by Myrtle Sebastian M.D. TW: MADI Report ID: [id number] Reading Location: [id number] Boo RODÍRGUEZ IMG DXA PROCEDURES Harriet l Result * Screening Mammogram Bilateral W Thomas (03/23/2025) Anatomical Region Laterality Modality Breast Bilateral Mammography Generic External Data Provider IMG MAMMO PROCEDU RES Final Result * CT Lung Cancer Screening (10/20/2024 7:05 AM CORROSION CONTROL ENGINEER) Anatomical Region Laterality Modality Chest N/A Computed Tomogra phy 10/27/2024 8:17 AM CORROSION CONTROL ENGINEER Narrative 10/27/2024 8:25 AM CORROSION CONTROL ENGINEER EXAM DESCRIPTION: CT LUNG CANCER SCREENING REASON FOR STUDY: Screening CT of the chest in a current smoker with a 45 pack year smoking history. Additional history: None. TECHNIQUE: Low dose CT scan of the chest was performed without intravenous contrast using helical scanning technique. The exam extends from the lung apices through the lung bases. Automatic exposure control was used as a dose optimization technique. NOTE: This study was performed for the specific purposes of lung cancer screening and is not an alternative to diagnostic chest CT. RADIATION DOSE: CT dose index volume (CTDIvol) = 1.10 mGy COMPARISON: CT lung cancer screening 10/19/2023 FINDINGS: SMOKING RELATED LUNG DISEASE: There is moderate centrilobular pulmonary emphysema. There is biapical scarring and bullae measuring up to 3.3 cm.. LUNG NODULES: A few scattered subpleural pulmonary nodules, for example 3 mm left upper lobe nodule (axial image 63). Stable 6 mm right upper lobe nodular opacity (axial image 48) which is likely due to scarring when correlating with sagittal images. No new pulmonary nodules are seen. CORONARY ARTERY CALCIFICATION: Present. OTHER: Normal heart size. No mediastinal or hilar lymph node enlargement by size criteria. No acute findings in the visualized upper abdomen given low-dose technique. No acute skeletal abnormality. IMPRESSION: Stable pulmonary nodules. No new nodules. Moderate pulmonary emphysema. Lung-RADS category 2: Benign appearance or behavior. Recommendation: Low dose Screening CT of chest in 12 months. THIS IS AN ELECTRONICALLY VERIFIED FINAL REPORT 10/27/2024 8:25 AM - Electronically signed by Jakob MIGUEL JR Report ID: [id number] Reading Location: [place] [address] Procedure Note Jakob Hooper MD - 10/27/2024 EXAM DESCRIPTION: CT LUNG CANCER SCREENING REASON FOR STUDY: Screening CT of the chest in a current smoker with a45 pack year smoking history. Additional history: None. TECHNIQUE: Low dose CT scan of the chest was performed without intravenous contrast using helical scanning technique. The exam extends from the lung apices through the lung bases. Automatic exposure control was used as adose optimization technique. NOTE: This study was performed for the specific purposes of lung cancer screening and is not an alternative to diagnostic chest CT. RADIATION DOSE: CT dose index volume (CTDIvol) = 1.10 mGy COMPARISON: CT lung cancer screening 10/19/2023 FINDINGS: SMOKING RELATED LUNG DISEASE: There is moderate centrilobular pulmonary emphysema. There is biapical scarring and bullae measuring up to 3.3cm.. LUNG NODULES: A few scattered subpleural pulmonary nodules, for example3 mm left upper lobe nodule (axial image 63). Stable 6 mm right upper lobe nodular opacity (axial image 48) which is likely due to scarring when correlating with sagittal images. No new pulmonary nodules are seen. CORONARY ARTERY CALCIFICATION: Present. OTHER: Normal heart size. No mediastinal or hilar lymph nodeenlargement by size criteria. No acute findings in the visualized upper abdomen given low-dose technique. No acute skeletal abnormality. IMPRESSION: Stable pulmonary nodules. No new nodules. Moderate pulmonary emphysema. Lung-RADS category 2: Benign appearance or behavior. Recommendation: Low dose Screening CT of chest in 12 months. THIS IS AN ELECTRONICALLY VERIFIED FINAL REPORT 10/27/2024 8:25 AM - Electronically signed by Jakob Hooper M.D., JR: Report ID: [id number] Reading Location: [id number] Boo RODRÍGUEZ IMG CT PROCEDURES Final Result * Colonoscopy (04/07/2024) Anatomical Region Laterality Modality Other Generic External Data Provider ENDOSCOPY PROCEDU RES Final Result * HM PAP SMEAR WITH HPV (01/07/2024) Generic External Data Provider HEALTH MAINTENANC E Final Result * Hepatitis panel, acute (08/25/2020 4:40 PM CDT) Hep A IgM Nonreactive Nonreactive [facility] ([place]) Comment: Interpretive Data: If Hep A IgM Ab is reported as Equivocal, a new sample should be drawn in two weeks for testing. Current interpretive data was last revised on 20. Testing performed by: [address] [address] Hep B core IgM Nonreactive Nonreactive [facility] ([place]) Comment: Interpretive Data If HepB Core IgM Ab is reported as Equivocal, a new sample should be drawn in two weeks for testing. Current interpretive data was last revised on 20. Testing performed by: [address] [address] Hep C Ab Nonreactive Nonreactive [facility] ([place]) Comment: Interpretive Data Nonreactive: Antibodies to HCV not detected. Does NOT exclude the possibility of recent exposure to HCV. Equivocal: Equivocal for HCV antibodies. Supplemental molecular testing will be automatically performed to determine infection status in accordance with current CDC screening recommendations. Reactive: Positive for HCV antibodies. This may represent current or past HCV infection. Supplemental molecular testing will be automatically performed to determine current infection status in accordance with current CDC screening recommendations. Interpretive data was last revised on 2020. Testing performed by: [address] [address] HepBsAg Nonreactive Nonreactive [facility] ([place]) Comment:Testing performed by : [address] [address] Blood specimen (specimen) 08/25/2020 4:40 PM CDT 08/25/2020 7:14 PM CDT Edin Akhtar MD LAB MICROBIOLOGY - GENERAL ORDERABLES Final Result [facility] ([place]) [facility] Department of Laboratories [place] [phone] from Last 3 Months or Most Recently Relevant to Health Maintenance Insurance [employer] WORK[employer] COMPENSATION GENERIC * Guarantor: [employer] Account Type Relation to Patient Date of Phone Billing Address Workers Comp [address] [employer] COMP[employer]ATION [facility] [place] [place] [address] Advance Directives For more information, please contact: [phone] * Full Code (Latest Code Status on File) Date Activated Date Inactivated Comments 05/06/2025 11:18 AM 05/07/2025 7:53 PM Care Teams Guest Room Attendant Relationship Specialty Start Date End Date Boo Deleon PA [address] [place] [address] PCP - General Internal Medicine 06/28/22 Dorian Rogers MD [address] [place] [address] Consulting Physician Obstetrics and Gynecology 01/27/24 Mikey Maynard MD [address] [facility] [address] [place] [address] Referring Physician Orthopedic Surgery 03/10/25
--- OUTSIDE RECORDS SUMMARY | 2025-07-06 15:08 | XMS_ITS | Encounter Summary ---
Author Organization [facility] Healthcare Address [address] [place] [address] Care Team Providers Care Pierogi Maker Name Role Phone Boo Deleon Primary Care Provider Dorian Rogers MD Unavailable [phone] Mikey Maynard MD Unavailable [phone] Encounter Details Date Type Department Care Team ([facility] Contact Info) Description 08/23/2024 Orders Only [facility] Health Information Management [address] [place] [id number] Scanning, Provider Social History Tobacco Use Types Packs/Day Years Used Date Smoking Tobacco: Every Day Cigarettes 1.5 45.9 Started: 1981 Smokeless Tobacco: Never Alcohol Use Standard Drinks/Week Comments Yes 0 (1 standard drink = 0.6 oz pur e alcohol) PHQ-2 Answer Date Recorded PHQ-2 Total Score (If total score is 3 or more points, staff should administer the PHQ-9) 0 07/28/2024 Comments No Sex and Gender Information Value Date Recorded Sex Assigned at Not on file Legal Sex Female 7:06 PM ROLL TESTER Gender Identity Not on file Sexual Orientation Not on file documented as of this encounter Plan of Treatment Not on file documented as of this encounter Procedures Procedure Name Priority Date/Time Associated Diagnosis Comments SCAN - LABS 08/23/2024 documented in this encounter Results * SCAN - LABS (08/23/2024) us Provider Scanning Final Result documented in this encounter Visit Diagnoses Not on filedocumented in this encounter Additional Health Concerns Infection Onset Date Last Indicated Resolved Time COVID: Suspected 12/07/2024 12/07/2024 12/08/2024 3:07 AM ROLL TESTER documented as of this encounter Care Teams Pierogi Maker Relationship Specialty Start Date End Date Boo Deleon PA [address] [place] [address] PCP - General Internal Medicine 06/28/22 Dorian Rogers MD [address] [facility] [address] [place] [address] Consulting Physician Obstetrics and Gynecology 01/27/24 Mikey Maynard MD [address] [place] [address] Referring Physician Orthopedic Surgery 03/10/25 joselo irizarry Dermatology 03/10/25 03/10/25 documented as of this encounter
--- OUTSIDE RECORDS SUMMARY | 2025-07-06 15:08 | XMS_ITS | Clinical Summary ---
Author Organization [facility] Address [address] [place] [address] Care Team Providers Care School Photograph Editor Name Role Phone Unavailable Primary Care Provider Unavailabl e Encounters Date Type Department Care Team Description 06/01/2025 External Device Data STL ABSTRACTION Provider, Abstract 04/20/2025 External Device Data ST[facility] ABSTRACTION Provider, Abstract 04/13/2025 External Device Data ST[facility] ABSTRACTION Provider, Abstract from Last 3 Months Social History Tobacco Use Types Packs/Day Years Used Date Smoking Tobacco: Never Assessed Comments Unknown Sex and Gender Information Value Date Recorded Sex Assigned at Not on file Legal Sex Female 6:29 PM DATE PULLER Gender Identity Not on file Sexual Orientation Not on file Plan of Treatment Health Maintenance Due Date Last Done Comments DTAP/TDAP/TD VACCINES (1 - Tdap) 1982 HPV/Cotest (21-29) 1984 CERVICAL CANCER SCREENING 1993 HPV/Cotest (30-65) 1993 PAP SMEAR 1993 FIT-DNA Q 3 years 2008 FIT/FOBT Q 1 year 2008 Flex Sig/CT Colonography Q 5 years 2008 ZOSTER VACCINE (1 of 2) 2013 RSV VACCINE (60+ or ) (1 - Risk 60-74 years 1-dose series) 2023 INFLUENZA VACCINE (#1) 2025 COVID-19 Vaccine (3 - 2024-2 6 season) 2025 02/17/2021, 01/20/2021 BREAST CANCER SCREENING 03/23/2026 03/23/20 25, 01/29/2024, 01/29/2024, Additional history exists COLORECTAL SCREENING 04/07/2034 04/07/2024, 01/30/20 14 Colorectal Cancer Screening 04/07/2034 Procedures Procedure Name Priority Date/Time Associated Diagnosis Comments MAMMO 3D CARSON SCREEN BILAT W OR WO CAD Routine 03/23/2025 3:14 PM CDT Visit for screening mammogram from Last 3 Months or Most Recently Relevant to Health Maintenance Results * MAMMO 3D CARSON SCREEN BILAT W OR WO CAD (03/23/2025 3:14 PM CDT) Anatomical Region Laterality Modality Breast Bilateral Mammography 03/23/2025 3:14 PM CDT Impressions 03/23/2025 3:23 PM CDT IMPRESSION: BI-RADS 1, negative. Annual screening mammography is advised. Narrative 03/23/2025 3:23 PM CDT Bilateral screening mammogram. Comparison is made with bilateral screening mammogram from a force 01/15/2024, 12/20/2022, 12/04/2022 and then 2018. The right-sided breast ultrasound from 12/20/2022 was also reviewed. CLINICAL HISTORY: Patient is a 67-year-old female without personal or first degree family history consistent with breast cancer who has Farhana ultrasound proven fibrocystic breast disease, evaluate. TECHNIQUE: Bilateral CC and MLO images of the breasts are obtained and reviewed with 2-D mammogram and tomosynthesis, CD. FINDINGS: The breast parenchyma is composed of scattered of heterogeneously dense fibroglandular tissue which may decrease sensitivity of the study, category C. Bilaterally, there are multiple, normal-appearing intramammary lymph nodes, there are no suspicious masses, microcalcifications clusters, architectural distortions or asymmetric densities. us Boo Deleon PA-C MAMMO ORDERABLES Final Resu lt from Last 3 Months or Most Recently Relevant to Health Maintenance Insurance [facility]
--- OUTSIDE RECORDS SUMMARY | 2025-07-06 15:08 | XMS_ITS | Encounter Summary ---
Author Organization [facility] Address [address] [place] [address] Care Team Providers Care Tank Car Mechanic Name Role Phone Unavailable Primary Care Provider Unavailabl e Encounter Details Date Type Department Care Team (Late st Contact Info) Description 12/02/2023 Lab Requisition [facility] - DermPath Lab [address] [facility] [place] [id number] Conner Burleson Jr., MD [address] [place] [address] Social History Tobacco Use Types Packs/Day Years [...] Procedure Name Priority Date/Time Associated Diagnosis Comments DERMATOPATHOLOGY Routine 11/29/2023 3:33 AM TUNGSTEN REFINER documented in this encounter Results * DERMATOPATHOLOGY (11/29/2023 3:33 AM TUNGSTEN REFINER) Case Report Dermatopathology Report Case: [id number] Authorizing Provider: Conner Burleson Jr., MD Collected: 11/29/2023 03:33 AM Ordering Location: [facility] DermPath Lab Received: 12/02/2023 01:49 PM Pathologist: Pneny Guzmán MD Specimen: Skin, left radial dorsalhand 1:33 PM TUNGSTEN REFINER DERMATOPATHOLOGY LABORATORY Final Diagnosis Specimen A. SKIN, left radial dorsal hand: HYPERPLASTIC (HYPERTROPHIC) ACTINIC KERATOSIS (L57.0) MILIUM WITH EVIDENCE OF RUPTURE (L72.8) 4 1:33 PM TUNGSTEN REFINER DERMATOPATHOLOGY LABORATORY at [address] TUNGSTEN REFINER Clinical History Inflamed Seborrheic Keratosis vs Squamous Cell Carcinoma vs Verruca Vulgaris vs foreign body Granuloma, Prurigo Nodularis 1:33 PM [facility] DERMATOPATHOLOGY LABORATORY Gross Description Specimen A: Received is one formalin filled container labeled with the patient's name and designated left radial dorsal hand. The specimen consists of a shave biopsy measuring 9x7x4 mm. Jar 0. 1:33 PM [facility] DERMATOPATHOLOGY LABORATORY Microscopic Description Specimen A. SKIN, left radial dorsal hand: There is hyperkeratosis alternating with parakeratosis. There is epidermal hyperplasia with disorderly maturation of keratinocytes with nuclear pleomorphism confined to the lower half of the epidermis. There is a space that contains loosely aggregated cornified cells. Surrounding this is an infiltrate with histiocytes, and multinucleated giant cells. 1:33 PM [facility] DERMATOPATHOLOGY LABORATORY Disclaimer An external and internal positive and negative controls are appropriate for the histochemical, immunohistochemical and immunofluorescence stain(s) in this case (if any), except where stated explicitly. The performance characteristics of the stain(s) cited in this report were developed and its performance characteristic determined by the Dermatopathology Laboratory at [facility], directed by Dr. Rocky Collier. These tests need not be, and therefore are not, approved by the [place] Food and Drug Administration. The tests are used for clinical purposes. Billing Codes Specimen Charges Stain Charges 74439 1 1:33 PM [facility] DERMATOPATHOLOGY LABORATORY Embedded Images 1:33 PM [facility] DERMATOPATHOLOGY LABORATORY Pathology/Cytolo gy TISSUE SPECIMEN FROM SKIN / Unknown 11/29/2023 3:33 AM TUNGSTEN REFINER 12/02/2023 1:49 PM TUNGSTEN REFINER Conner Burleson Jr., MD LAB - PATHOLOGY/CYTOLOG Y ORDERABLES Final Result DERMATOPATHOLOGY LABORATORY [facility] - Department of Dermatology [address] [phone] documented in this encounter Visit Diagnoses Not on filedocumented in this encounter
--- OUTSIDE RECORDS SUMMARY | 2025-07-06 15:08 | XMS_ITS | Encounter Summary ---
Author Organization [facility] Address [address] [place] [address] Care Team Providers [employer] Director Name Role Phone Unavailable Primary Care Provider Unavailabl e Encounter Details Date Type Department Care Team (Late st Contact Info) Description 08/16/2020 Lab Requisition [facility] DermPath Lab [address] [facility] [place] [id number] Conner Burleson Jr., MD [address] [facility] [address] [place] [address] Social History Tobacco Use Types Packs/Day Years [...] Priority Date/Time Associated Diagnosis Comments DERMATOPATHOLOGY Routine 08/16/2020 12:0 0 AM CDT documented in this encounter Results * DERMATOPATHOLOGY (08/16/2020 12:00 AM CDT) Case Report Dermatopathology Report Case: [id number] Authorizing Provider: Conner Burleson Jr., MD Collected: 08/16/2020 12:00 AM Ordering Location: [facility] DermPath Lab Received: 08/16/2020 01:05 PM Pathologist: Sapphire Jaimes MD Specimen: Skin, right inferior upper back 0 3:11 PM CDT DERMATOPATHOLOGY LABORATORY Final Diagnosis Specimen A. SKIN, right inferior upper back: SEBORRHEIC KERATOSIS, INFLAMED (L82.0) 0 3:11 PM CDT DERMATOPATHOLOGY LABORATORY at 1511 CDT Clinical History Inflamed seborrheic keratosis. . 0 3:11 PM CDT DERMATOPATHOLOGY LABORATORY Gross Description Specimen A: Received is one formalin filled container labeled with the patient's name and designated right inferior upper back. The specimen consists of a shave biopsy measuring [id number]. Jar 0. 0 3:11 PM CDT DERMATOPATHOLOGY LABORATORY Microscopic Description Specimen A. SKIN, right inferior upper back: There is hyperkeratosis, parakeratosis, papillomatosis, and acanthosis of the epidermis. There is a lymphohistiocytic infiltrate within the papillary dermis that is focally lichenoid. 0 3:11 PM CDT DERMATOPATHOLOGY LABORATORY Disclaimer An external and internal positive and negative controls are appropriate for the histochemical, immunohistochemical and immunofluorescence stain(s) in this case (if any), except where stated explicitly. The performance characteristics of the stain(s) cited in this report were developed and its performance characteristic determined by the Dermatopathology Laboratory at [facility], directed by Dr. Rocky Collier. These tests need not be, and therefore are not, approved by the [place] Food and Drug Administration. The tests are used for clinical purposes. Billing Codes Specimen Charges Stain Charges 78524 1 0 3:11 PM CDT DERMATOPATHOLOGY LABORATORY Embedded Images 0 3:11 PM CDT DERMATOPATHOLOGY LABORATORY Pathology/Cytolog y TISSUE SPECIMEN FROM SKIN / Unknown 08/16/2020 08/16/2020 1:05 PM CDT Conner Burleson Jr., MD LAB - PATHOLOGY/CYTOLOG Y ORDERABLES Final Result DERMATOPATHOLOGY LABORATORY [facility] - Department of Dermatology [address], [address] [phone] documented in this encounter Visit Diagnoses Not on filedocumented in this encounter
--- OUTSIDE RECORDS SUMMARY | 2025-07-06 15:08 | XMS_ITS | Encounter Summary ---
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 Phone Unavailable Primary Care Provider Unavailabl e Encounter Details Date Type Department Care Team (Late st Contact Info) Description 08/03/2020 Lab Requisition [facility] [address] [facility], [place] [phone] Conner Burleson Jr., MD [address] [facility] [address] [place] [address] Social History Tobacco Use Types Packs/Day Years [...] Priority Date/Time Associated Diagnosis Comments DERMATOPATHOLOGY Routine 08/02/2020 12:0 0 AM CDT documented in this encounter Results * DERMATOPATHOLOGY (08/02/2020 12:00 AM CDT) Case Report Dermatopathology Report Case: [id number] Authorizing Provider: Conner Burleson Jr., MD Collected: 08/02/2020 12:00 AM Ordering Location: [facility] Received: 08/03/2020 12:24 PM Pathologist: Emma Austin MD Specimen: Skin, right posterior shoulder 0 3:23 PM CDT DERMATOPATHOLOGY LABORATORY Final Diagnosis Specimen A. SKIN, right posterior shoulder: BASAL CELL CARCINOMA, NODULAR TYPE (C44.612) 0 3:23 PM CDT DERMATOPATHOLOGY LABORATORY at 1522 CDT Clinical History Basal cell carcinoma vs irritated seborrheic keratosis vs scar. 0 3:23 PM CDT DERMATOPATHOLOGY LABORATORY Gross Description Specimen A: Received is one formalin filled container labeled with the patient's name and designated right posterior shoulder. The specimen consists of a shave biopsy measuring 8x5x1 mm. Jar 0. 0 3:23 PM CDT DERMATOPATHOLOGY LABORATORY Microscopic Description Specimen A. SKIN, right posterior shoulder: Within the dermis there are aggregates of basaloid cells with a high nuclear to cytoplasmic ratio and peripheral palisading. 0 3:23 PM CDT DERMATOPATHOLOGY LABORATORY Disclaimer An external and internal positive and negative controls are appropriate for the histochemical, immunohistochemical and immunofluorescence stain(s) in this case (if any), except where stated explicitly. The performance characteristics of the stain(s) cited in this report were developed and its performance characteristic determined by the Dermatopathology Laboratory at [facility], directed by Dr. Rocky Collier. These tests need not be, and therefore are not, approved by the [place] Food and Drug Administration. The tests are used for clinical purposes. Billing Codes Specimen Charges Stain Charges 15131 1 0 3:23 PM CDT DERMATOPATHOLOGY LABORATORY Embedded Images 0 3:23 PM CDT DERMATOPATHOLOGY LABORATORY Pathology/Cytolog y TISSUE SPECIMEN FROM SKIN / Unknown 08/02/2020 08/03/2020 12:24 PM CDT Conner Burleson Jr., MD LAB - PATHOLOGY/CYTOLOG Y ORDERABLES Final Result DERMATOPATHOLOGY LABORATORY [facility] - Department of Dermatology [address] [place] [address], [facility] [phone] documented in this encounter Visit Diagnoses Not on filedocumented in this encounter
--- OUTSIDE RECORDS SUMMARY | 2025-07-06 15:08 | XMS_ITS | Encounter Summary ---
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 DermPath Lab [address] [facility] [place] [phone] Conner Burleson Jr., MD [address] [facility] [address] [place] [address] Social History Tobacco Use Types Packs/Day Years [...] Priority Date/Time Associated Diagnosis Comments DERMATOPATHOLOGY Routine 01/31/2021 3:33 AM CDT documented in this encounter Results * DERMATOPATHOLOGY (01/31/2021 3:33 AM CDT) Case Report Dermatopathology Report Case: [id number] Authorizing Provider: Conner Burleson Jr., MD Collected: 01/31/2021 03:33 AM Ordering Location: [facility] DermPath Lab Received: 02/02/2021 07:26 AM Pathologist: Emma Austin MD Specimen: Skin, right superior medial lower back 12:15 PM CDT DERMATOPATHOLOGY LABORATORY Final Diagnosis Specimen A. SKIN, right superior medial lower back: INTRADERMAL NEVUS, NEUROTIZED (D22.9) 12:15 PM CDT DERMATOPATHOLOGY LABORATORY at 1215 CDT Clinical History Irritated nevus. . 12:15 PM CDT DERMATOPATHOLOGY LABORATORY Gross Description Specimen A: Received is one formalin filled container labeled with the patient's name and designated right superior medial lower back. The specimen consists of a shave biopsy measuring [id number]. Jar 0. 12:15 PM CDT DERMATOPATHOLOGY LABORATORY Microscopic Description Specimen A. SKIN, right superior medial lower back: Sections show nests, cords, and strands of cytologically bland melanocytes that mature with descent into the dermis. There are areas in which the melanocytes have a neuroid appearance. 12:15 PM CDT DERMATOPATHOLOGY LABORATORY Disclaimer An external and internal positive and negative controls are appropriate for the histochemical, immunohistochemical and immunofluorescence stain(s) in this case (if any), except where stated explicitly. The performance characteristics of the stain(s) cited in this report were developed and its performance characteristic determined by the Dermatopathology Laboratory at [facility], directed by Dr. Rocky Collier. These tests need not be, and therefore are not, approved by the [place] Food and Drug Administration. The tests are used for clinical purposes. Billing Codes Specimen Charges Stain Charges 39441 1 12:15 PM CDT DERMATOPATHOLOGY LABORATORY Embedded Images 12:15 PM CDT DERMATOPATHOLOGY LABORATORY Pathology/Cytolo gy TISSUE SPECIMEN FROM SKIN / Unknown 01/31/2021 3:33 AM CDT 02/02/2021 7:26 AM CDT us Conner Burleson Jr., MD LAB - PATHOLOGY/CYTOLOG Y ORDERABLES Final Result DERMATOPATHOLOGY LABORATORY [facility] - Department of Dermatology [address] [place] [address], [facility] [phone] documented in this encounter Visit Diagnoses Not on filedocumented in this encounter
--- OUTSIDE RECORDS SUMMARY | 2025-07-06 15:08 | XMS_ITS | Encounter Summary ---
Author Organization [facility] Address [address] [place] [address] Care Team Providers Care Cpas Name Role Phone Boo Deleon Primary Care Provider Dorian Rogers MD Unavailable [phone] Mikey Maynard MD Unavailable [phone] Reason for Visit * Reason Onset Date Comments letter for work stating she can not go back to w ork 07/06/2025 Encounter Details Date Type Department Care Team (Late st Contact Info) Description 07/06/2025 Telephone [facility] [address] [facility] 3rd Floor [address] [place] [address] Lu Austin letter for work stating she can not go back to work Social History Tobacco Use Types Packs/Day Years Used Date Smoking Tobacco: Former Cigarettes 1.5 45.7 1 - 05/05/2025 Smokeless Tobacco: Never Alcohol Use Standard Drinks/Week Comments Not Currently 0 (1 standard drink = 0.6 oz pur e alcohol) [facility] Utilities Answer Date Recorded In the past 12 months has e electric, gas, oil, or water company threatened to shut off services in your [...] often do you attend chur ch or methodist services? Never 05/06/2025 Do you belong to any clubs o r organizations such as confucianist groups, unions, fraternal or athletic groups, or [...] staff should administer the PHQ-9) 0 03/10/2025 [facility] - Occupational Stress [...] any time in the past 12 m [facility], were you homeless or living in a long-term (including now)? No 05/06/2025 AUDIT-C Answer Date [...] on file Legal Sex Female 7:06 PM [employer] Gender Identity Not on file Sexual Orientation Not on file documented as of this encounter Miscellaneous Notes * Telephone Encounter - Lu Austin - 07/06/2025 1:02 PM CDT Spoke to patient she will call back for appt * Telephone Encounter - Halie Argueta RN - 07/06/2025 10:[address] Edmundo Leigh wrote her off work until 07/17/25. Please book her 07/19/25 at either 9:45am or 10:45am tosee him to discuss continuation of off duty/work release. Bert TREVINO * Telephone Encounter - Lu Austin - 07/06/2025 10:25 AM CDT Patient calling needing an letter for work stating she can not go back to work until she finishes her physical therapy .she will start physical therapy 07-12-25 will go until 10-11-25. Please MY Chartletter documented in this encounter Plan of Treatment Not on file documented as of this encounter Visit Diagnoses Not on filedocumented in this encounter Care Teams Cpas Relationship Specialty Start Date End Date Boo Deleon PA [address] [place] [address] PCP - General Internal Medicine 06/28/22 Dorian Rogers MD [address] [facility] [address] [place] [address] Consulting Physician Obstetrics and Gynecology 01/27/24 Mikey Maynard MD [address] [facility] [address] [place] [address] Referring Physician Orthopedic Surgery 03/10/25 documented as of this encounter
== END 2025-07-06 13:36 | disposition home or self-care (01) ==
PROVIDERS: PCP Physician Assistant; Visit Provider Orthopaedic Surgery
DX: S83.282D Other tear of lateral meniscus, current injury, left knee, subsequent encounter (principal); Z96.659 Presence of unspecified artificial knee joint; X58.XXXD Exposure to other specified factors, subsequent encounter
CPT/HCPCS: 73700

== ENCOUNTER 2025-08-10 07:29 | Outpatient (CLI) | payer OTHER, SELFPAY ==
--- NOTE | ~2025-08-10 | MR_ITS ---
EXAMINATION: MR shoulder LT wo con DATE: 08/10/2025 08:16 INDICATION: Primary osteoarthritis of the left shoulder TECHNIQUE: Magnetic resonance imaging (MRI) of the left shoulder was performed without intravenous contrast. Sequences included axial PD-weighted FS FSE, coronal oblique PD-weighted FS FSE, coronal oblique T2-weighted FS FSE, sagittal PD-weighted FS FSE, and sagittal T1-weighted SE. COMPARISON: None. FINDINGS: Coracoacromial arch: The acromion undersurface is curved in morphology (type II). The coracoacromial ligament is normal. Acromioclavicular joint is normal. Rotator cuff: Moderate supraspinatus and mild infraspinatus tendinopathy. There are few small ganglion cysts, the largest measuring 1.7 x 0.9 x 0.5 mm which extend along the longitudinal split tears between the otherwise intact appearing tendon fibers. Mild subscapularis tendinopathy without tear. The teres minor tendon is normal. Normal rotator cuff muscle bulk and signal. Biceps tendon, glenoid labrum and glenohumeral cartilage: Long head of the biceps tendon is normal. There is tear of the 12:00-9:30 position of the superior to posterior glenoid labrum. Deep chondral ulceration without degenerative subchondral cystic change along the inferior margin of the glenoid. There are small marginal osteophytes along the inferior rim of the glenoid with likely chronic degeneration of the inferior labrum with thickened globular regions the anteroinferior labrum and loss of labral tissue along the inferior rim of the glenoid. There is less severe partial thickness chondral ulceration without degenerative subchondral changes along the inferomedial to superomedial left humeral head as well as the cephalad third of the glenoid. Small marginal osteophytes along the humeral head. Fluid: Physiologic amount of fluid in the biceps tendon sheath. Likely reactive small left glenohumeral joint effusion which extends into the deep subscapular recess. No loose osteochondral bodies. Small amount of fluid in the subacromial/subdeltoid bursa consistent with mild bursitis. Bones: Bone alignment is normal. No fracture or pathologic marrow replacing process. Degenerative cystic change along the tuberosity most prominent posteriorly but also at the anterior aspect of the superior facet and lateral likely related to the supraspinatus tendon disease. IMPRESSION: 1. Moderate left glenohumeral osteoarthritis with high-grade chondromalacia along the inferior glenoid and likely reactive small glenohumeral joint effusion. 2. SLAP tear of the superior to posterior glenoid labrum and likely chronic degeneration along the inferior glenoid labrum. 3. Moderate supraspinatus and mild infraspinatus and subscapularis tendinopathy with longitudinal split tearing and intrasubstance ganglion cysts within the supraspinatus tendon. 4. Mild subacromial/subdeltoid bursitis. Reviewed, dictated and finalized at location A. IMPRESSION: 1. Moderate left glenohumeral osteoarthritis with high-grade chondromalacia franc ng the inferior glenoid and likely reactive small glenohumeral joint effusion. 2. SLAP tear of the superior to posterior glenoid labrum and likely chronic deg eneration along the inferior glenoid labrum. 3. Moderate supraspinatus and mild infraspinatus and subscapularis tendinopathy with longitudinal split tearing and intrasubstance ganglion cysts within the s upraspinatus tendon. 4. Mild subacromial/subdeltoid bursitis.
== END 2025-08-10 07:30 | disposition home or self-care (01) ==
LOC: MICIMG 07:30
PROVIDERS: PCP Physician Assistant; Visit Provider Orthopaedic Surgery
DX: M19.012 Primary osteoarthritis, left shoulder (principal); S43.432A Superior glenoid labrum lesion of left shoulder, initial encounter; M94.212 Chondromalacia, left shoulder; M67.814 Other specified disorders of tendon, left shoulder; M75.52 Bursitis of left shoulder; X58.XXXA Exposure to other specified factors, initial encounter
CPT/HCPCS: 73221